=== PATIENT | male | born 1955 | race Caucasian/White ===

== ENCOUNTER 2025-06-02 10:11 | Inpatient (IN) | payer MEDICARE, SELFPAY ==
[2025-06-02] VITALS (24 sets, daily range): BP systolic 98–137; BP diastolic 54–99; PULSE 84–101; RESP 16–24; TEMP 36.6–37; O2SAT 97–100; BMI 30.4
--- NOTE | ~2025-06-02 | CT_ITS ---
CTA CHEST CT ABDOMEN PELVIS CLINICAL HISTORY: sob, rothman, swelling legs, gib . COMPARISON: None TECHNIQUE: Helical CT performed from thoracic inlet to symphysis pubis IV contrast information not in PACS Coronal, sagittal reformats. Multiplanar MIPS CT images acquired with automatic exposure control for dose reduction DLP: 1239 mGy-cm FINDINGS: CHEST- Thoracic Aorta: No dissection. No aneurysm. Pulmonary arteries: Normal caliber. No PE. Lungs/Pleura: Clear. Heart: Cardiomegaly Coronary artery calcifications. Tracheobronchial tree: Patent. Nodes: No enlarged nodes. Bones: No acute bony abnormality. Soft tissues: Unremarkable. ABDOMEN/PELVIS- Liver: Cirrhosis. Enlarged Gallbladder: Small stone. Wall thickening. Spleen: Unremarkable. Pancreas: Unremarkable. Adrenal glands: Unremarkable. Kidneys: Right kidney- No hydronephrosis. No renal stones. Small probable cysts. Left kidney- No hydronephrosis. No renal stones. Distal esophagus/stomach: High density intraluminal material at GE junction. Distal esophageal wall thickening/esophagitis. Small bowel loops: Normal caliber and wall thickness. Colon: Normal caliber and wall thickness. Normal RLQ appendix. Nodes: No enlarged nodes. Peritoneum: No ascites. No free air. Urinary bladder: Unremarkable. Prostate: Unremarkable. Bones: No acute bony abnormality. Soft tissues: Unremarkable. Abdominal aorta: Unremarkable. IVC: Unremarkable. Main portal vein, SMV: Patent. IMPRESSION: CHEST- 1. No acute cardiopulmonary findings. ABDOMEN/PELVIS- 1. Distal esophagitis. High density intraluminal material at GE junction - non cleared ingested contents versus active bleed. 2. Nonspecific gallbladder wall thickening. If indicated can consider right upper quadrant ultrasound and/or HIDA scan. 3. Additional findings as above. Reviewed, dictated and finalized at location [facility]. [facility] IMPRESSION: CHEST- 1. No acute cardiopulmonary findings. ABDOMEN/PELVIS- 1. Distal esophagitis. High density intraluminal material at GE junction - non cleared ingested contents versus active bleed. 2. Nonspecific gallbladder wall thickening. If indicated can consider right up per quadrant ultrasound and/or HIDA scan. 3. Additional findings as above.
--- NOTE | ~2025-06-02 | US_ITS ---
BILATERAL LOWER EXTREMITY VENOUS DUPLEX Clinical History: swelling ble, R>L, pain in L thigh . Comparison: None. Technique: Grayscale, color, duplex/spectral Doppler sonography bilateral lower extremities. Findings: Bilateral common femoral, femoral, popliteal, and calf veins compressible and color Doppler patent. Normal augmentation with distal compression. No internal echoes. Bilateral lower extremity interstitial edema. IMPRESSION: 1. No DVT either leg. Reviewed, dictated and finalized at location R. DERRICK OPERATOR IMPRESSION: 1. No DVT either leg.
[2025-06-02 10:36] LABS: Hematocrit 21.5 % (42.0-52.0); Immature Granulocyte Percent A 0.2 % (0-0.5); Lymphocytes Absolute Auto 1.67 K/mm3 (0.9-3.2); Mean Corpuscular HGB Conc 27.9 g/dl (32-36); Mean Corpuscular Hemoglobin 21.4 pg (26-34); Mean Corpuscular Volume 76.5 fl (80-100); Nucleated Red Blood Cells Absolute Auto 0.020 K/mm3 (0.0-0.012); Nucleated Red Blood Cells Perc 0.4 % (0.0-0.2); Platelet Count Result 246 k/mm3 (150-375); Red Blood Count 2.81 M/mm3 (4.6-6.20); White Blood Count 5.6 K/mm3 (4.5-10.0)
[2025-06-02 10:39] LABS: Hemoglobin 6.0 g/dL (14.0-18.0)
[2025-06-02 10:47] LABS: Anisocytosis 2+; Hypochromasia 2+; Stomatocytes 1+
[2025-06-02 10:48] LABS: Ovalocytes Occasional; Polychromasia 1+; Schistocytes None Seen; Target Cells Occasional
[2025-06-02 10:50] LABS: Alanine Aminotransferase 27 U/L (6-50); Albumin Level 3.5 g/dL (3.5-5.1); Alkaline Phosphatase 161 U/L (38-126); Anion Gap 6 mmol/L (4-12); Aspartate Amino Transferase 34 U/L (17-59); Bilirubin,Total 0.4 mg/dL (0.2-1.3); Blood Urea Nitrogen 11 mg/dL (9-20); Calcium 8.3 mg/dL (8.4-10.2); Carbon Dioxide 25 mmol/L (22-30); Chloride 105 mmol/L (98-107); Estimated CRCL calculation 97 ml/min; Estimated Glomerular Filt Rate > 60; Glucose 156 mg/dL (65-110); Potassium 3.3 mmol/L (3.4-5.0); Sodium 136 mmol/L (137-145); Total Protein 8.3 g/dL (6.3-8.2)
[2025-06-02 10:51] LABS: Immature Reticulocyte Fraction 29.4 % (3.0-15.9); Reticulocyte Hemoglobin Conten 15.6 pg (28.2-36.6); Reticulocytes Absolute 0.09 10^6/uL (0.02-0.10)
[2025-06-02 10:56] LABS: Iron 21 ug/dL (49-181)
[2025-06-02 10:56] LABS: INR 1.1; Prothrombin Time 14.6 Seconds (11.1-14.7)
[2025-06-02 10:57] LABS: Partial Thromboplastin Time 30.4 Seconds (22.3-36.8)
--- NOTE | 2025-06-02 11:01 | ECG_ITS ---
Test Date: 2025-06-02 11:26:18 Measurements Intervals [place] Rate: 91 P: 31 MA: 162 QRS: 17 QRSD: 98 T: 24 QT: 342 QTc: 421 Interpretive Statements SINUS RHYTHM ST-T WAVE ABNORMALITY IN ANTEROLATERAL LEADS- CONSIDER ISCHEMIA BASELINE ARTIFACT- I, II, III, AVR, AVL, AVF, V1-V6 ABNORMAL ECG No previous ECG available for comparison Electronically Signed On 06-02-2025 11:35:06 [employer] by Moreno Jones D.O.
--- NOTE | 2025-06-02 11:04 | ED.RECABL ---
HPI - Recheck/Abnormal Lab/Rx General Chief Complaint: Recheck/Abnormal Lab/Rx <Mignon Martin PA-C - Last Filed: 06/02/25 16:19> Stated Complaint: internal bleeding <Mignon Martin PA-C - Last Filed: 06/02/25 16:19> Time Seen by Provider: 06/02/25 10:16 <RUPESH Coffman Last Filed: 06/02/25 16:19> Source: patient <RUPESH Coffman Last Filed: 06/02/25 16:19> Mode of arrival: ambulatory <RUPESH Coffman Last Filed: 06/02/25 16:19> Limitations: no limitations <RUPESH Coffman Last Filed: 06/02/25 16:19> History of Present Illness HPI narrative: patient is a 70-year-old male who presents the ED with report of abnormal labs. Patient reports he has been feeling short of breath and increasingly fatigued over the past couple of weeks. He had routine blood work performed yesterday and was notified by his primary care doctor today that his hemoglobin was low. Advised to come to the ED for further evaluation. Patient states he has history of low hemoglobin in the past and has required blood transfusions in the past. Denies rectal bleeding. Does report that his stools have been dark brown/ black over the past few weeks. patient takes aspirin 81 mg daily, no other blood thinners. Denies abdominal pain, nausea, vomiting, fevers. Denies chest pain. Reports having some swelling throughout his left lower leg. States he has been treated for cellulitis in the past. States he was was to receive a stent in the leg in October, but left [facility] at that time. 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 Reports he drinks two 24oz beers per day. Used to drink heavier. Denies hx of alcohol withdrawal sx's. <RUPESH Coffman Last Filed: 06/02/25 16:19> Related Data Home Medications: Home Medications ?Medication ?Instructions ?Recorded ?Confirmed ?Last Taken ?Type blood-glucose sensor (FreeStyle 06/02/25 06/02/25 Unknown History [place] 3 Sensor device) ezetimibe 10 mg tablet 10 mg PO DAILY 06/02/25 06/02/25 06/01/25 History furosemide 40 mg tablet 40 mg PO BID 06/02/25 06/02/25 06/01/25 History gabapentin 600 mg tablet 600 mg PO TID 06/02/25 06/02/25 06/01/25 History glimepiride 2 mg tablet 2 mg PO DAILY 06/02/25 06/02/25 06/01/25 History insulin degludec 100 unit/mL (3 See Rx Instructions subcut .COMPLEX 06/02/25 06/02/25 06/01/25 History mL) subcutaneous pen (Tresiba FlexTouch U-100 insulin) insulin lispro 100 unit/mL See Rx Instructions subcut .COMPLEX 06/02/25 06/02/25 06/01/25 History subcutaneous pen metformin 1,000 mg tablet 1,000 mg PO BID 06/02/25 06/02/25 06/01/25 History potassium chloride 20 mEq 20 meq PO DAILY 06/02/25 06/02/25 06/01/25 History tablet,extended release primidone 50 mg tablet 50 mg PO BID 06/02/25 06/02/25 06/01/25 History tadalafil 20 mg tablet 20 mg PO PRN 06/02/25 06/02/25 Unknown History <Mignon Martin PA-C - Last Filed: 06/02/25 16:19> Allergies/Adverse Reactions: Allergies Allergy/AdvReac Type Severity Reaction Status Date / Time [id number] Reductase AdvReac Mild Cramping Verified 06/02/25 16:45 Inhibitor of the Muscles <RUPESH Coffman Last Filed: 06/02/25 16:19> Review of Systems Review of Systems: All systems reviewed & are unremarkable except as noted in HPI. <RUPESH Coffman Last Filed: 06/02/25 16:19> All systems reviewed & are unremarkable except as noted in HPI and below <RUPESH Coffman Last Filed: 06/02/25 16:19> Constitutional: Constitutional: Reports no additional constitutional complaints <Luigi Reyes MD - Last Filed: 06/02/25 17:22> Eyes: Eyes: Reports no additional eye complaints <Luigi Reyes MD - Last Filed: 06/02/25 17:22> ENT: Reports system reviewed and no additional complaints, except as documented <Luigi Reyes MD - Last Filed: 06/02/25 17:22> Cardiovascular: Cardiovascular: Reports no additional cardiovascular complaints <Luigi Reyes MD - Last Filed: 06/02/25 17:22> Respiratory: Respiratory: Reports no additional respiratory complaints <Luigi Reyes MD - Last Filed: 06/02/25 17:22> Musculoskeletal: Musculoskeletal: Reports as per HPI <Luigi Reyes MD - Last Filed: 06/02/25 17:22> Neurologic: Reports system reviewed and no additional complaints, except as documented <Luigi Reyes MD - Last Filed: 06/02/25 17:22> [facility] Social History Social History: Social History Alcohol intake: current Drinks per week: 14 Substance use: current Substance use type: methamphetamine Last use: 06/01/25 Lack of Transportation: No Lack of Food: Never True Current Housing: I Have Housing Concerned About Future Housing: No Difficulty Paying Gas/Electric Bills: No Difficulty Paying for Meds: No Currently Unemployed: No Education: High School Diploma/GED Difficulty w/ Childcare or Family Care: No Spiritual care concerns: No <Mignon Martin PA-C - Last Filed: 06/02/25 16:19> Exam Narrative: GENERAL: Chronically ill-appearing, obese with BMI of 30.2, non-toxic, in no acute distress. HEAD: Normocephalic, atraumatic. RESPIRATORY: Airway patent, respirations nonlabored. Clear to auscultation bilaterally, no rales, rhonchi, wheezing. CARDIOVASCULAR: Regular rate and rhythm without murmurs, rubs, or gallops. ABDOMINAL: Soft, no significant tenderness, nondistended. Normoactive BS. RECTAL: normal rectal tone. No significant hemorrhoids. Stool is dark brown /near black, guaiac positive MUSCULOSKELETAL: Moves all extremities. No gross deformities. Diffuse swelling throughout LLE with some redness throughout lower leg. No significant warmth. Pedal pulses are intact and easily palpable. No significant focal tenderness throughout BLE SKIN: Warm, dry, normal color. NEURO: A&O X3. Speech clear. Cranial nerves II-XII grossly intact. Steady gait. No ataxic movements. PSYCHIATRIC: Appropriate mood and affect. Normal interaction. <Mignon Martin PA-C - Last Filed: 06/02/25 16:19> Course RAG SHREDDER/PA Physician Supervision i did reviewed the chart, examined patient and agree with management <Luigi Reyes MD - Last Filed: 06/02/25 17:22> Vital Signs Vital signs: Vital Signs Temperature 36.6 C 06/02/25 10:20 Pulse Rate 101 H 06/02/25 10:20 Respiratory Rate 23 H 06/02/25 10:20 Blood Pressure 130/69 06/02/25 10:20 Pulse Oximetry 100 06/02/25 10:20 Oxygen Delivery Room Air 06/02/25 10:20 Temperature 36.8 C 06/02/25 16:46 Pulse Rate 86 06/02/25 16:46 Respiratory Rate 18 06/02/25 16:46 Blood Pressure 114/60 06/02/25 16:46 Pulse Oximetry 100 06/02/25 16:46 Oxygen Delivery Room Air 06/02/25 10:20 <Mignon Martin PA-C - Last Filed: 06/02/25 16:19> Vital Signs Temperature 36.6 C 06/02/25 10:20 Pulse Rate 101 H 06/02/25 10:20 Respiratory Rate 23 H 06/02/25 10:20 Blood Pressure 130/69 06/02/25 10:20 Pulse Oximetry 100 06/02/25 10:20 Oxygen Delivery Room Air 06/02/25 10:20 Temperature 36.8 C 06/02/25 16:46 Pulse Rate 86 06/02/25 16:46 Respiratory Rate 18 06/02/25 16:46 Blood Pressure 114/60 06/02/25 16:46 Pulse Oximetry 100 06/02/25 16:46 Oxygen Delivery Room Air 06/02/25 10:20 <Lugii Reyes MD - Last Filed: 06/02/25 17:22> MDM MDM Narrative Medical decision making narrative: Patient presented to ED with report of abnormal labs. States he has been feeling it short of breath and fatigued over the past few weeks, had labs drawn yesterday which showed low hemoglobin. Sent here for further evaluation. Patient mildly tachycardic and tachypneic upon arrival, but in no acute distress. Rectal exam was performed and patient is guaiac positive. States his stools have been darker in color over the past few days. Denies BRBPR. On aspirin, no other blood thinners. Denies abdominal pain, but does have history of moderate alcohol use. Protonix initiated. Hemoglobin today 6.0. Hematocrit 21.5. Microcytic with MCV 76. Platelets within normal range. 2U packed red blood cell ordered. Anemia labs added on. CMP with potassium 3.3. Replaced orally. Kidney function stable. Lactic acid 2.6. EKG with lots of artifacts, sinus rhythm, no significant concerning ST changes. Troponin undetectable. BNP within normal range. Venous Doppler ultrasound of bilateral lower extremities negative for DVT. will start cefazolin for cellulitis of left lower extremity. no purulence/abscess. CTA of chest with abdomen / pelvis obtained: 1. Distal esophagitis. High density intraluminal material at GE junction - non cleared ingested contents versus active bleed. 2. Nonspecific gallbladder wall thickening. If indicated can consider right upper quadrant ultrasound and/or HIDA scan. Discussed case with Dr. Little, GI, will consult. Discussed case with Maritza, [facility] hospitalist, accepted patient for admission. Will keep patient NPO for now. Patient is in agreement with plan and need for admission. He is remaining hemodynamically stable at this time. Blood ongoing. <Mignon Martin PA-C - Last Filed: 06/02/25 16:19> Differential Diagnosis Differential Diagnosis: UGIB, LGIB, hemorrhoids, iron deficiency anemia, anemia of chronic disease, acs, pe <Mignon Martin PA-C - Last Filed: 06/02/25 16:19> Lab Data [facility] Lab Attestation statement: I personally reviewed the patient's lab results. <Mignon Martin PA-C - Last Filed: 06/02/25 16:19> Result diagrams: 06/02/25 10:30 06/02/25 10:30 <Mignon Martin PA-C - Last Filed: 06/02/25 16:19> Labs: Lab Results 06/02/25 06/02/25 06/02/25 Range/Units 10:27 10:29 10:30 WBC 5.6 (4.5-10.0) K/mm3 RBC 2.81 L (4.6-6.20) M/mm3 Hgb 6.0 L* (14.0-18.0) g/dL Hct 21.5 L (42.0-52.0) % MCV 76.5 L (80-100) fl MCH 21.4 L (26-34) pg MCHC 27.9 L (32-36) g/dl RDW 20.2 H (11.5-14.5) % Plt Count 246 (150-375) k/mm3 MPV 9.4 (7.4-10.4) fl Immature Gran % (Auto) 0.2 (0-0.5) % Neut % (Auto) 55.8 (45.5-73.1) % Lymph % (Auto) 29.8 (18.3-44.2) % [place] % (Auto) 12.1 H (2.6-8.5) % Eos % (Auto) 0.9 (0-4.4) % Baso % (Auto) 1.2 (0.2-1.2) % Lymph # (Auto) 1.67 (0.9-3.2) K/mm3 [place] # (Auto) 0.7 H (0.1-0.6) K/mm3 Eos # (Auto) 0.1 (0-0.3) K/mm3 Baso # (Auto) 0.1 (0.0-0.1) K/mm3 Abs Immat Gran (auto) 0.01 (0.00-0.031) K/mm3 Absolute Neuts (auto) 3.1 (1.3-6.7) K/mm3 Absolute Nucleated RBC 0.020 H (0.0-0.012) K/mm3 Band Neutrophils % Not Reportable Nucleated RBC % 0.4 H (0.0-0.2) % Platelet Estimate Adequate (Adequate) Polychromasia 1+ Hypochromasia 2+ Anisocytosis 2+ Target Cells Occasional Ovalocytes Occasional Stomatocytes 1+ Schistocytes None seen Absolute Retic 0.09 (0.02-0.10) 10^6/uL Percent Retic 3.23 (0.7-4.3) % Immature Retic Fraction 29.4 H (3.0-15.9) % Retic Hgb Content 15.6 L (28.2-36.6) pg PT 14.6 (11.1-14.7) Seconds INR 1.1 APTT 30.4 (22.3-36.8) Seconds Sodium 136 L (137-145) mmol/L Potassium 3.3 L (3.4-5.0) mmol/L Chloride 105 (98-107) mmol/L Carbon Dioxide 25 (22-30) mmol/L Anion Gap 6 (4-12) mmol/L BUN 11 (9-20) mg/dL Creatinine 0.69 L (0.7-1.3) mg/dL Estim Creat Clear Calc 97 ml/min Estimated GFR > 60 (59 - ) Glucose 156 H (65-110) mg/dL POC Capillary Glucose 165 H (65-105) mg/dl Lactic Acid 2.6 H (0.7-2.0) mmol/L Calcium 8.3 L (8.4-10.2) mg/dL Magnesium 1.6 (1.6-2.3) mg/dL Iron 21 L (49-181) ug/dL TIBC 459 (265-497) ug/dL % Saturation 5 L (20-50) % Transferrin 413 H (206-381) mg/dL Ferritin 19.00 (11.1-264) ng/mL Total Bilirubin 0.4 (0.2-1.3) mg/dL AST 34 (17-59) U/L ALT 27 (6-50) U/L Alkaline Phosphatase 161 H (38-126) U/L Troponin I < 0.012 (0.000-0.034) ng/mL NT-Pro-B Natriuret Pep 71 (19.9-100) pg/mL Total Protein 8.3 H (6.3-8.2) g/dL Albumin 3.5 (3.5-5.1) g/dL Vitamin B12 404.0 (239-931) pg/mL Folate 19.6 (2.76->20) ng/mL TSH (Reflex) 2.780 (0.465-4.68) uIU/mL Urine Color (Yellow) Urine Appearance (Clear) Urine pH (5.0-9.0) Ur Specific [place] (1.001-1.035) Urine Protein (Negative) mg/dL Urine Glucose (UA) (Negative) mg/dL Urine Ketones (Negative) mg/dL Ur Blood (Man) (Negative) Urine Nitrate (Negative) Urine Bilirubin (Negative) Urine Urobilinogen (<2.0) mg/dL Leukocyte Esterase Rfl (Negative) ERIK/UL Urine RBC (0-2) /hpf Urine WBC (0-3) /hpf Ur Squamous Epith Cells (Few) /hpf Urine Bacteria /hpf Urine Casts Urine Opiates Screen (Negative) Urine Methadone Screen (Negative) Ur Barbiturates Screen (Negative) Ur Phencyclidine Scrn (Negative) Ur Amphetamine Screen (Negative) U Benzodiazepines Scrn (Negative) Urine Cocaine Screen (Negative) U Cannabinoids Screen (Negative) Ethyl Alcohol < 10 (<10) mg/dL Blood Type O Positive Antibody Screen Negative Crossmatch See Detail 06/02/25 06/02/25 Range/Units 12:00 13:10 WBC (4.5-10.0) K/mm3 RBC (4.6-6.20) M/mm3 Hgb (14.0-18.0) g/dL Hct (42.0-52.0) % MCV (80-100) fl MCH (26-34) pg MCHC (32-36) g/dl RDW (11.5-14.5) % Plt Count (150-375) k/mm3 MPV (7.4-10.4) fl Immature Gran % (Auto) (0-0.5) % Neut % (Auto) (45.5-73.1) % Lymph % (Auto) (18.3-44.2) % [place] % (Auto) (2.6-8.5) % Eos % (Auto) (0-4.4) % Baso % (Auto) (0.2-1.2) % Lymph # (Auto) (0.9-3.2) K/mm3 [place] # (Auto) (0.1-0.6) K/mm3 Eos # (Auto) (0-0.3) K/mm3 Baso # (Auto) (0.0-0.1) K/mm3 Abs Immat Gran (auto) (0.00-0.031) K/mm3 Absolute Neuts (auto) (1.3-6.7) K/mm3 Absolute Nucleated RBC (0.0-0.012) K/mm3 Band Neutrophils % Nucleated RBC % (0.0-0.2) % Platelet Estimate (Adequate) Polychromasia Hypochromasia Anisocytosis Target Cells Ovalocytes Stomatocytes Schistocytes Absolute Retic (0.02-0.10) 10^6/uL Percent Retic (0.7-4.3) % Immature Retic Fraction (3.0-15.9) % Retic Hgb Content (28.2-36.6) pg PT (11.1-14.7) Seconds INR APTT (22.3-36.8) Seconds Sodium (137-145) mmol/L Potassium (3.4-5.0) mmol/L Chloride (98-107) mmol/L Carbon Dioxide (22-30) mmol/L Anion Gap (4-12) mmol/L BUN (9-20) mg/dL Creatinine (0.7-1.3) mg/dL Estim Creat Clear Calc ml/min Estimated GFR (59 - ) Glucose (65-110) mg/dL POC Capillary Glucose (65-105) mg/dl Lactic Acid 2.0 (0.7-2.0) mmol/L Calcium (8.4-10.2) mg/dL Magnesium (1.6-2.3) mg/dL Iron (49-181) ug/dL TIBC (265-497) ug/dL % Saturation (20-50) % Transferrin (206-381) mg/dL Ferritin (11.1-264) ng/mL Total Bilirubin (0.2-1.3) mg/dL AST (17-59) U/L ALT (6-50) U/L Alkaline Phosphatase (38-126) U/L Troponin I (0.000-0.034) ng/mL NT-Pro-B Natriuret Pep (19.9-100) pg/mL Total Protein (6.3-8.2) g/dL Albumin (3.5-5.1) g/dL Vitamin B12 (239-931) pg/mL Folate (2.76->20) ng/mL TSH (Reflex) (0.465-4.68) uIU/mL Urine Color Yellow (Yellow) Urine Appearance Clear (Clear) Urine pH 7.0 (5.0-9.0) Ur Specific [place] 1.017 (1.001-1.035) Urine Protein Negative (Negative) mg/dL Urine Glucose (UA) Negative (Negative) mg/dL Urine Ketones Negative (Negative) mg/dL Ur Blood (Man) Negative (Negative) Urine Nitrate Negative (Negative) Urine Bilirubin Negative (Negative) Urine Urobilinogen 2.0 H (<2.0) mg/dL Leukocyte Esterase Rfl Trace H (Negative) ERIK/UL Urine RBC 0-2 (0-2) /hpf Urine WBC 0-5 (0-3) /hpf Ur Squamous Epith Cells None seen (Few) /hpf Urine Bacteria None seen /hpf Urine Casts 0-2 Urine Opiates Screen Negative (Negative) Urine Methadone Screen Negative (Negative) Ur Barbiturates Screen Positive A (Negative) Ur Phencyclidine Scrn Negative (Negative) Ur Amphetamine Screen Positive A (Negative) U Benzodiazepines Scrn Negative (Negative) Urine Cocaine Screen Negative (Negative) U Cannabinoids Screen Negative (Negative) Ethyl Alcohol (<10) mg/dL Blood Type Antibody Screen Crossmatch <Mignon Martin PA-C - Last Filed: 06/02/25 16:19> Lab Results 06/02/25 06/02/25 06/02/25 Range/Units 10:27 10:29 10:30 WBC 5.6 (4.5-10.0) K/mm3 RBC 2.81 L (4.6-6.20) M/mm3 Hgb 6.0 L* (14.0-18.0) g/dL Hct 21.5 L (42.0-52.0) % MCV 76.5 L (80-100) fl MCH 21.4 L (26-34) pg MCHC 27.9 L (32-36) g/dl RDW 20.2 H (11.5-14.5) % Plt Count 246 (150-375) k/mm3 MPV 9.4 (7.4-10.4) fl Immature Gran % (Auto) 0.2 (0-0.5) % Neut % (Auto) 55.8 (45.5-73.1) % Lymph % (Auto) 29.8 (18.3-44.2) % [place] % (Auto) 12.1 H (2.6-8.5) % Eos % (Auto) 0.9 (0-4.4) % Baso % (Auto) 1.2 (0.2-1.2) % Lymph # (Auto) 1.67 (0.9-3.2) K/mm3 [place] # (Auto) 0.7 H (0.1-0.6) K/mm3 Eos # (Auto) 0.1 (0-0.3) K/mm3 Baso # (Auto) 0.1 (0.0-0.1) K/mm3 Abs Immat Gran (auto) 0.01 (0.00-0.031) K/mm3 Absolute Neuts (auto) 3.1 (1.3-6.7) K/mm3 Absolute Nucleated RBC 0.020 H (0.0-0.012) K/mm3 Band Neutrophils % Not Reportable Nucleated RBC % 0.4 H (0.0-0.2) % Platelet Estimate Adequate (Adequate) Polychromasia 1+ Hypochromasia 2+ Anisocytosis 2+ Target Cells Occasional Ovalocytes Occasional Stomatocytes 1+ Schistocytes None seen Absolute Retic 0.09 (0.02-0.10) 10^6/uL Percent Retic 3.23 (0.7-4.3) % Immature Retic Fraction 29.4 H (3.0-15.9) % Retic Hgb Content 15.6 L (28.2-36.6) pg PT 14.6 (11.1-14.7) Seconds INR 1.1 APTT 30.4 (22.3-36.8) Seconds Sodium 136 L (137-145) mmol/L Potassium 3.3 L (3.4-5.0) mmol/L Chloride 105 (98-107) mmol/L Carbon Dioxide 25 (22-30) mmol/L Anion Gap 6 (4-12) mmol/L BUN 11 (9-20) mg/dL Creatinine 0.69 L (0.7-1.3) mg/dL Estim Creat Clear Calc 97 ml/min Estimated GFR > 60 (59 - ) Glucose 156 H (65-110) mg/dL POC Capillary Glucose 165 H (65-105) mg/dl Lactic Acid 2.6 H (0.7-2.0) mmol/L Calcium 8.3 L (8.4-10.2) mg/dL Magnesium 1.6 (1.6-2.3) mg/dL Iron 21 L (49-181) ug/dL TIBC 459 (265-497) ug/dL % Saturation 5 L (20-50) % Transferrin 413 H (206-381) mg/dL Ferritin 19.00 (11.1-264) ng/mL Total Bilirubin 0.4 (0.2-1.3) mg/dL AST 34 (17-59) U/L ALT 27 (6-50) U/L Alkaline Phosphatase 161 H (38-126) U/L Troponin I < 0.012 (0.000-0.034) ng/mL NT-Pro-B Natriuret Pep 71 (19.9-100) pg/mL Total Protein 8.3 H (6.3-8.2) g/dL Albumin 3.5 (3.5-5.1) g/dL Vitamin B12 404.0 (239-931) pg/mL Folate 19.6 (2.76->20) ng/mL TSH (Reflex) 2.780 (0.465-4.68) uIU/mL Urine Color (Yellow) Urine Appearance (Clear) Urine pH (5.0-9.0) Ur Specific [place] (1.001-1.035) Urine Protein (Negative) mg/dL Urine Glucose (UA) (Negative) mg/dL Urine Ketones (Negative) mg/dL Ur Blood (Man) (Negative) Urine Nitrate (Negative) Urine Bilirubin (Negative) Urine Urobilinogen (<2.0) mg/dL Leukocyte Esterase Rfl (Negative) ERIK/UL Urine RBC (0-2) /hpf Urine WBC (0-3) /hpf Ur Squamous Epith Cells (Few) /hpf Urine Bacteria /hpf Urine Casts Urine Opiates Screen (Negative) Urine Methadone Screen (Negative) Ur Barbiturates Screen (Negative) Ur Phencyclidine Scrn (Negative) Ur Amphetamine Screen (Negative) U Benzodiazepines Scrn (Negative) Urine Cocaine Screen (Negative) U Cannabinoids Screen (Negative) Ethyl Alcohol < 10 (<10) mg/dL Blood Type O Positive Antibody Screen Negative Crossmatch See Detail 06/02/25 06/02/25 Range/Units 12:00 13:10 WBC (4.5-10.0) K/mm3 RBC (4.6-6.20) M/mm3 Hgb (14.0-18.0) g/dL Hct (42.0-52.0) % MCV (80-100) fl MCH (26-34) pg MCHC (32-36) g/dl RDW (11.5-14.5) % Plt Count (150-375) k/mm3 MPV (7.4-10.4) fl Immature Gran % (Auto) (0-0.5) % Neut % (Auto) (45.5-73.1) % Lymph % (Auto) (18.3-44.2) % [place] % (Auto) (2.6-8.5) % Eos % (Auto) (0-4.4) % Baso % (Auto) (0.2-1.2) % Lymph # (Auto) (0.9-3.2) K/mm3 [place] # (Auto) (0.1-0.6) K/mm3 Eos # (Auto) (0-0.3) K/mm3 Baso # (Auto) (0.0-0.1) K/mm3 Abs Immat Gran (auto) (0.00-0.031) K/mm3 Absolute Neuts (auto) (1.3-6.7) K/mm3 Absolute Nucleated RBC (0.0-0.012) K/mm3 Band Neutrophils % Nucleated RBC % (0.0-0.2) % Platelet Estimate (Adequate) Polychromasia Hypochromasia Anisocytosis Target Cells Ovalocytes Stomatocytes Schistocytes Absolute Retic (0.02-0.10) 10^6/uL Percent Retic (0.7-4.3) % Immature Retic Fraction (3.0-15.9) % Retic Hgb Content (28.2-36.6) pg PT (11.1-14.7) Seconds INR APTT (22.3-36.8) Seconds Sodium (137-145) mmol/L Potassium (3.4-5.0) mmol/L Chloride (98-107) mmol/L Carbon Dioxide (22-30) mmol/L Anion Gap (4-12) mmol/L BUN (9-20) mg/dL Creatinine (0.7-1.3) mg/dL Estim Creat Clear Calc ml/min Estimated GFR (59 - ) Glucose (65-110) mg/dL POC Capillary Glucose (65-105) mg/dl Lactic Acid 2.0 (0.7-2.0) mmol/L Calcium (8.4-10.2) mg/dL Magnesium (1.6-2.3) mg/dL Iron (49-181) ug/dL TIBC (265-497) ug/dL % Saturation (20-50) % Transferrin (206-381) mg/dL Ferritin (11.1-264) ng/mL Total Bilirubin (0.2-1.3) mg/dL AST (17-59) U/L ALT (6-50) U/L Alkaline Phosphatase (38-126) U/L Troponin I (0.000-0.034) ng/mL NT-Pro-B Natriuret Pep (19.9-100) pg/mL Total Protein (6.3-8.2) g/dL Albumin (3.5-5.1) g/dL Vitamin B12 (239-931) pg/mL Folate (2.76->20) ng/mL TSH (Reflex) (0.465-4.68) uIU/mL Urine Color Yellow (Yellow) Urine Appearance Clear (Clear) Urine pH 7.0 (5.0-9.0) Ur Specific [place] 1.017 (1.001-1.035) Urine Protein Negative (Negative) mg/dL Urine Glucose (UA) Negative (Negative) mg/dL Urine Ketones Negative (Negative) mg/dL Ur Blood (Man) Negative (Negative) Urine Nitrate Negative (Negative) Urine Bilirubin Negative (Negative) Urine Urobilinogen 2.0 H (<2.0) mg/dL Leukocyte Esterase Rfl Trace H (Negative) ERIK/UL Urine RBC 0-2 (0-2) /hpf Urine WBC 0-5 (0-3) /hpf Ur Squamous Epith Cells None seen (Few) /hpf Urine Bacteria None seen /hpf Urine Casts 0-2 Urine Opiates Screen Negative (Negative) Urine Methadone Screen Negative (Negative) Ur Barbiturates Screen Positive A (Negative) Ur Phencyclidine Scrn Negative (Negative) Ur Amphetamine Screen Positive A (Negative) U Benzodiazepines Scrn Negative (Negative) Urine Cocaine Screen Negative (Negative) U Cannabinoids Screen Negative (Negative) Ethyl Alcohol (<10) mg/dL Blood Type Antibody Screen Crossmatch <Luigi Reyes MD - Last Filed: 06/02/25 17:22> Imaging Data Attestation: I personally reviewed and interpreted this imaging study as follows: <Mignon Martin PA-C - Last Filed: 06/02/25 16:19> Radiologist's impression: ITS Impressions Venous Doppler Study 06/02/25 11:57 IMPRESSION: 1. No DVT either leg. Chest/Abdomen/Pelvis CTA 06/02/25 12:37 IMPRESSION: CHEST- 1. No acute cardiopulmonary findings. ABDOMEN/PELVIS- 1. Distal esophagitis. High density intraluminal material at GE junction - non cleared ingested contents versus active bleed. 2. Nonspecific gallbladder wall thickening. If indicated can consider right upper quadrant ultrasound and/or HIDA scan. 3. Additional findings as above. <Mignon Martin PA-C - Last Filed: 06/02/25 16:19> ITS Impressions Venous Doppler Study 06/02/25 11:57 IMPRESSION: 1. No DVT either leg. Chest/Abdomen/Pelvis CTA 06/02/25 12:37 IMPRESSION: CHEST- 1. No acute cardiopulmonary findings. ABDOMEN/PELVIS- 1. Distal esophagitis. High density intraluminal material at GE junction - non cleared ingested contents versus active bleed. 2. Nonspecific gallbladder wall thickening. If indicated can consider right upper quadrant ultrasound and/or HIDA scan. 3. Additional findings as above. <Luigi Reyes MD - Last Filed: 06/02/25 17:22> ECG Data EKG #1: Attestation: I personally reviewed and interpreted this ECG as follows: <Mignon Martin PA-C - Last Filed: 06/02/25 16:19> ECG completion date: 06/02/25 <Mignon Martin PA-C - Last Filed: 06/02/25 16:19> ECG completion time: 11:26 <Mignon Martin PA-C - Last Filed: 06/02/25 16:19> normal rate (91), sinus rhythm and non-specific ST changes ( lots of baseline artifact) <Mignon Martin PA-C - Last Filed: 06/02/25 16:19> Discharge Plan Discharge Clinical Impression: UGIB (upper gastrointestinal bleed), Cellulitis of left lower extremity Anemia Qualifiers: Anemia type: unspecified type Qualified Code(s): D64.9 - Anemia, unspecified <Mignon Martin PA-C - Last Filed: 06/02/25 16:19> Patient Disposition: Still a Patient <Mignon Martin PA-C - Last Filed: 06/02/25 16:19> Condition: Stable <RUPESH Coffman Last Filed: 06/02/25 16:19>
[2025-06-02 11:05] LABS: Percent Iron Saturation 5 % (20-50)
--- OUTSIDE RECORDS SUMMARY | 2025-06-02 11:11 | XMS_ITS | Clinical Summary ---
Author Organization [facility] Address [address] [facility] [place] [address] Care Team Providers Care Marketing Planner Name Role Phone Toribio Laguerre MD Unavailable [phone] Gordon Polo MD Unavailable [phone] Stu Ho MD Primary Care Provider [phone] Source Comments [facility],non-owned Affiliates and Associated Physician Practices is amultiple site organization consisting of ambulatory clinics and hospital sitesin [place], [place], [place] and [place]. This disclosure is being madepursuant to the Care Everywhere program and may not contain all information available regarding this patient. Last updated 18.[facility] Allergies No known active allergies Medications * Be aware that medications may not be up to date on this document. Alwaysverify current medications with the patient. METFORMIN HCL PO Take 500 mg by mouth 2 times daily. Active atenolol (TENORMIN) 50 MG tablet 2 times daily. Activ e triamterene-hyd rochlorothiazid e (MAXZIDE) 75-50 MG tablet once daily. Ac tive hydrocodone-saumya taminophen (NORCO) 5-325 MG tablet Take 1-2 Tabs by mouth every 4 hours as needed for Pain (pain). Called to pharmacy [facility] per Dr Whittaker 40 Tab 1 3 Active methocarbamol (ROBAXIN) 750 MG tablet Take 1 Tab by mouth every 6 hours. 40 Tab 1 3 Active diclofenac sodium (VOLTAREN) 75 MG tablet TBEC Alternate 3 one day 2 next 150 Tab 5 3 Active traMADol (ULTRAM) 50 MG tablet Take 1 Tab by mouth every 6 hours as needed for Pain. 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 Gender Identity Not on file Sexual Orientation Not on file Occupation Industry Job Start Date Job End Date [employer] Not on file Not on file Not on file Last Filed Vital Signs Vital Sign Reading Time Taken Comments Blood Pressure 115/73 08/07/2012 2:26 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 Pulse 80 08/07/2012 2: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 Temperature 36.9 C (98.4 F) 08/07/2012 2: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 Respiratory Rate 16 08/07/2012 2: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 Oxygen Saturation 97% 08/07/2012 2: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 Inhaled Oxygen Concentration - - Weight 108.9 kg (240 lb) 08/07/2012 2: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 Height 172.7 cm (5' 8) 08/07/2012 2: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 Body Mass Index 36.49 08/07/2012 2: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 Plan of Treatment Health Maintenance Due Date Last Done Comments COLOGUARD (AGES 45-75) - COL ON CA SCREENING 1953 COLON MONITORING 1953 COLONOSCOPY - COLON CA SCREENING 1953 CT COLONOGRAPHY - COLON CA SCREENING 1953 Colorectal Cancer Screening 1953 FIT - COLON CA SCREENING 1953 FLEX SIG - COLON CA SCREENING 1953 LIPID TESTING 1953 HEPATITIS C SCREENING 02/17/1971 DTAP/TDAP/TD VACCINES (1 - Tdap) 02/22/1972 PNEUMOCOCCAL VACCINE 50+ (1 of 1 - PCV) 2003 ZOSTER VACCINE (1 of 2) 2003 DEPRESSION SCREENING 06/29/2024 COVID-19 VACCINE ( - 2024-2 6 season) 2025 INFLUENZA VACCINE (#1) 2025 Respiratory Syncytial Virus (RSV) Vaccine Pt: or over 60 yrs (1 - 1-dose 75+ series) 02/22/2028 HEPATITIS B VACCINE Aged Out No longe r eligible based on patient's age to complete this topic HIB VACCINE Aged Out No longer eligi ble based on patient's age to complete this topic HPV VACCINE Aged Out No longer eligi ble based on patient's age to complete this topic MENINGOCOCCAL (Group B) VACC INE SHARED DECISION-MAKING Aged Out No longer eligibl e based on patient's age to complete this topic MENINGOCOCCAL GROUPS A/C/Y/W VACCINE Aged Out No longer eligible b ased on patient's age to complete this topic Medical Devices Implanted Type Area Audio Visual Project Manager Device Identifier Shelf Expiration Date Model / Serial / Lot Kt Hmstat Plus Gel Foam Implanted:Qty: 1 on 08/05/2012 by Martin Whittaker MD at [facility] Spine Lumbar [employer] 04/28/2014 [id number] / / [id number] Kt Infs Bone Grft Med Implanted:Qty: 1 on 08/05/2012 by Martin Whittaker MD at [facility] Spine Lumbar [employer] 11/27/2014 [id number] / / [id number] Chip [facility] Bone 15cc - [id number] Implanted:Qty: 1 on 08/05/2012 by Martin Whittaker MD at [facility] Spine Lumbar [employer] 10/29/2016 [id number] / [id number] / [id number] Plate Spire 45mm Implanted:Qty: 1 on 08/05/2012 by Martin Whittaker MD at [facility] Spine Lumbar Med[employer] [id number] / / St Scrw Brk Off M4 Implanted:Qty: 1 on 08/05/2012 by Martin Whittaker MD at [facility] Spine Lumbar [employer] [id number] / / Insurance [facility] Advance Directives * FULL RESUSCITATION (Latest Code Status on File) Date Activated Date Inactivated Comments 08/05/2012 3:12 PM 08/05/2012 7:35 PM Care Teams Marketing Planner Relationship Specialty Start Date End Date Stu Ho MD [address] [place] [address] [address] [place] [address] PCP - General Internal Medicine 08/03/12 Toribio Laguerre MD Referring Physician Internal Medicine 05/12/12 Gordon Polo MD [facility] [address] [address] [address] [place] [address] Internal Medicine 05/12/12
[2025-06-02] MEDS: POTASSIUM CHLORIDE 20 MEQ ER TABLET PO (11:18)
[2025-06-02] MEDS: PANTOPRAZOLE SODIUM IV 40 MG VIAL IV PUSH ×2 (11:19→21:12)
[2025-06-02 11:29] LABS: Thyroid Stimulating Hormone Reflex 2.780 uIU/mL (0.465-4.68)
[2025-06-02 11:33] LABS: Ferritin 19.00 ng/mL (11.1-264); Magnesium 1.6 mg/dL (1.6-2.3)
[2025-06-02 11:34] LABS: Transferrin 413 mg/dL (206-381)
[2025-06-02 11:47] LABS: NT Pro B Type Natriuretic Pept 71 pg/mL (19.9-100); Troponin I < 0.012 ng/mL (0.000-0.034)
[2025-06-02] MEDS: MAGNESIUM SULF 2 GM/WATER 50ML 2 GM/50 ML BAG IVPB (11:51)
[2025-06-02 12:06] LABS: Vitamin B12 404.0 pg/mL (239-931)
[2025-06-02 12:13] LABS: Add Urine Microscopic? YES; Appearance Urine Clear (Clear); Glucose Urine UA Negative (Negative); Leukocyte Esterase Ur Trace LEU/UL (Negative); Nitrate Urine Negative (Negative); Non Pathogenic Casts 0-2; Specific Grav Ur 1.017 (1.001-1.035)
[2025-06-02 12:40] LABS: Cannabinoid Screen Urine Negative (Negative)
[2025-06-02] MEDS: TUBING, BLOOD PLUM PUMP TUBING 1 EACH XX (12:40)
[2025-06-02] MEDS: SODIUM CHLORIDE 0.9% IV 250 ML 30 ML IV CONT (12:40)
[2025-06-02] MEDS: ceFAZolin 1 GM in SODIUM CHLORIDE 0.9% IV 50 ML 100 ML IVPB ×2 (12:57→21:11)
--- NOTE | 2025-06-02 12:57 | PC.NURSE ---
per EDP no blood cultures are needed at this time
--- NOTE | 2025-06-02 15:35 | WPCEDHO ---
ED Hand Off Checklist All vitals saved: yes IV Site documented: yes All med administrations documented: yes Triage Note Triage Note pt ambulatory to ED for c/o low 06/02/25 10:20 hemoglobin. pt says he got his blood drawn yesterday at his PCP office and got a call today that his hemoglobin was 6.2. pt says I also do some street drugs pt says he uses meth, last use was last night I smoke it sometimes pt denies other drug use. pt says he drinks 2 24oz beers/day. pt also c/o intermittent SOB. pt says he has a HX of internal bleeding in 2020. pt L leg is also swollen and red, he has cellultits and supposed to get surgery at [facility] but left. pt is A&OX4 Allergies Sxdhhrf-ROF-LhH Reductase Inhibitor Adverse Reaction (Mild, Verified 06/02/25 10:32) Cramping of the Muscles Active Medications including assessments/comments Sodium Chloride (Normal Saline Iv) 250 mls @ 30 mls/hr IV CONT .Q8H20M STA Stop: 06/02/25 19:20 Last Admin: 06/02/25 12:40 Dose: 30 mls/hr Documented By: JEREMY Infusion/Titration Document 06/02/25 12:40 JEREMY (Rec: 06/02/25 12:40 JEREMY [id number]) Intake IV Site Peripheral Access Right Forearm Container Volume 250 Waste Amount 0 Dosing Infusion Rate 30 Cumulative Dose Not Applicable Increase/Decrease Started Elapsed Time Elapsed Time ( 0m minutes) Administered/Completed Medications Discontinued Medications Magnesium Sulfate (Magnesium Sulf 2 Gm/Water 50ml) 2 gm in 50 mls @ 50 mls/hr IVPB ONCE ONE Stop: 06/02/25 12:34 Last Infusion: 06/02/25 12:51 Dose: Infused Documented By: Admin: 06/02/25 11:51 Dose: 50 mls/hr Documented By: JEREMY Co-signed By: JACKELYN Cefazolin Sodium 1 gm/ Sodium (Chloride) 50 mls @ 100 mls/hr IVPB ONCE STA Stop: 06/02/25 12:52 Last Infusion: 06/02/25 13:27 Dose: Infused Documented By: Admin: 06/02/25 12:57 Dose: 100 mls/hr Documented By: JEREMY IV Miscellaneous Supplies (Tubing, Blood [place] Pump Tubing) Confirm Administered Dose 1 each XX .STK-MED ONE Stop: 06/02/25 11:13 Last Admin: 06/02/25 12:40 Dose: 1 each Documented By: JEREMY Pantoprazole Sodium (Pantoprazole Sodium Iv 40 Mg Vial) 40 mg IV PUSH ONCE STA Stop: 06/02/25 11:02 Last Admin: 06/02/25 11:19 Dose: 40 mg Documented By: JEREMY Potassium Chloride (Potassium Chloride 20 Meq Er Tablet) 20 meq PO ONCE STA Stop: 06/02/25 11:05 Last Admin: 06/02/25 11:18 Dose: 20 meq Documented By: JEREMY Notes 06/02/25 12:57 Nurse Note by Negin Young per EDP no blood cultures are needed at this time Initialized on 06/02/25 12:57 - END OF NOTE Interventions/Assessments General Assessment Start: 06/02/25 10:12 Freq: Status: Active Protocol: Document 06/02/25 10:31 KNW (Rec: 06/02/25 10:32 KNMaryse [id number]) GA Neurological Assessment Level of Alert,Awake Consciousness Arousable to Verbal Orientation Oriented to Person,Oriented to Place,Oriented to Time Behavior Appropriate,Cooperative Patient Able to Comprehend Comprehension Memory Description Intact Ability to Maintain Normal Balance Facial Symmetry Symmetrical Speech Pattern Clear IV / Saline Lock, Insert Start: 06/02/25 10:17 Freq: STAT Status: Active Protocol: Document 06/02/25 11:50 KNW (Rec: 06/02/25 11:50 JEREMY [id number]) IV Assessment Peripheral Access Right Forearm IV Catheter Access Initiated IV Insertion Date 06/02/25 IV Insertion Time 11:50 Catheter Gauge 16 IV Insertion 1 Attempts Ultrasound Used for No Placement IV Site Assessment WNL IV Care and WNL Maintenance Last Vital Signs Temperature 98.2 F 06/02/25 14:52 Pulse Rate 91 06/02/25 15:34 Respiratory Rate 18 06/02/25 15:34 Pulse Oximetry 98 06/02/25 15:34 Blood Pressure 109/60 06/02/25 15:34 Blood Pressure Mean 76 06/02/25 15:34 Blood Pressure Position Sitting 06/02/25 14:52 Oxygen Delivery Room Air 06/02/25 10:20 Weight 95.4 kg 06/02/25 10:20 Last Result - Abnormals Only RBC 2.81 M/mm3 (4.6-6.20) L 06/02/25 10:30 Hgb 6.0 g/dL (14.0-18.0) L* 06/02/25 10:30 Hct 21.5 % (42.0-52.0) L 06/02/25 10:30 MCV 76.5 fl (80-100) L 06/02/25 10:30 MCH 21.4 pg (26-34) L 06/02/25 10:30 MCHC 27.9 g/dl (32-36) L 06/02/25 10:30 RDW 20.2 % (11.5-14.5) H 06/02/25 10:30 Todd % (Auto) 12.1 % (2.6-8.5) H 06/02/25 10:30 Todd # (Auto) 0.7 K/mm3 (0.1-0.6) H 06/02/25 10:30 Absolute Nucleated RBC 0.020 K/mm3 (0.0-0.012) H 06/02/25 10:30 Nucleated RBC % 0.4 % (0.0-0.2) H 06/02/25 10:30 Immature Retic Fraction 29.4 % (3.0-15.9) H 06/02/25 10:29 Retic Hgb Content 15.6 pg (28.2-36.6) L 06/02/25 10:29 Sodium 136 mmol/L (137-145) L 06/02/25 10:30 Potassium 3.3 mmol/L (3.4-5.0) L 06/02/25 10:30 Creatinine 0.69 mg/dL (0.7-1.3) L 06/02/25 10:30 Glucose 156 mg/dL (65-110) H 06/02/25 10:30 POC Capillary Glucose 165 mg/dl (65-105) H 06/02/25 10:27 Lactic Acid 2.6 mmol/L (0.7-2.0) H 06/02/25 10:30 Calcium 8.3 mg/dL (8.4-10.2) L 06/02/25 10:30 Iron 21 ug/dL (49-181) L 06/02/25 10:29 % Saturation 5 % (20-50) L 06/02/25 10:29 Transferrin 413 mg/dL (206-381) H 06/02/25 10:29 Alkaline Phosphatase 161 U/L (38-126) H 06/02/25 10:30 Total Protein 8.3 g/dL (6.3-8.2) H 06/02/25 10:30 Urine Urobilinogen 2.0 mg/dL (<2.0) H 06/02/25 12:00 Leukocyte Esterase Rfl Trace ERIK/UL (Negative) H 06/02/25 12:00 Ur Barbiturates Screen Positive (Negative) A 06/02/25 12:00 Ur Amphetamine Screen Positive (Negative) A 06/02/25 12:00 Crossmatch See Detail 06/02/25 10:30 Most Recent Suicide Severity Rating Suicide Severity Rating NO RISK INDICATED 06/02/25 10:20
--- NOTE | 2025-06-02 16:58 | ADMGEN ---
This patient, Lavell Molina Jr., was admitted to Medical Room 347-01. Patient/family oriented to hospital policies and general routines including ID bracelet, bed and alarms, visiting hours, pain management, procedures, bathroom and other care routines, personal items, smoking policy, room service/diet, and visiting hours. Information on how to activate the Rapid Response Team has been discussed. Patient/Family are encouraged to report perceived risks to care and to ask questions if they do not understand what they are told or what they should do.
--- NOTE | 2025-06-02 17:16 | PM.IMHP2 ---
H&P: HPI History of Present Illness Date/Time: 06/02/25 1530 Chief Complaint: Anemia Narrative: 70-year-old male who past medical history of diabetes, ETOH abuse, methamphetamine abuse presents to the ED on 06/02/2025 with anemia. Patient has been feeling short of breath and fatigue for a few weeks and started having dark stool for about the same amount of time. Patient presented to his primary care provider on 06/01 and had labs drawn. PCPs office called the patient today did inform him that he needed to present to the ED due to a severely low hemoglobin of 6.2. Patient denies cough, fevers, chest pain. Denies abdominal pain and passing bright red blood. Patient has history of GI bleed with requirement of transfusion in the past. He is unsure what his last colonoscopy report was. Denies history of esophageal varices. Patient also states his left leg is chronically swollen in often times red. He denies significant pain to leg. Patient was supposed to have a stent to his left lower extremity at [facility] earlier this year but left AMA after becoming agitated with delays in the procedure. Patient endorses current alcohol abuse and methamphetamine abuse. Last meth and alcohol use was last night. Initial vital signs 130/69, HR 101, respirations 23, afebrile and 100% on room air. Labs reveal significant anemia with hemoglobin 6.0 and hematocrit 21.5. Sodium 136, potassium 3.3, creatinine 0.69, glucose 156. Lactic acid 2.6-the corrected to 2.0. Alk-phos 161. Troponin negative. UA without sign of infection. UDS positive for barbiturates and amphetamines. EKG reveals sinus rhythm, ST-T wave abnormality. Bilateral venous Dopplers negative for DVT. Chest abdomen pelvis CTA reads distal esophagitis. High density intraluminal material at GE junction - non cleared ingested contents versus active bleed. Nonspecific gallbladder wall thickening. Review of Systems Review of Systems: All systems reviewed & are unremarkable except as noted in HPI and below PMFSH Past Medical History Medical History Diabetes mellitus ETOH abuse Social History Social History Alcohol intake: current Drinks per week: 14 Substance use: current Substance use type: methamphetamine Last use: 06/01/25 Lack of Transportation: No Lack of Food: Never True Current Housing: I Have Housing Concerned About Future Housing: No Difficulty Paying Gas/Electric Bills: No Difficulty Paying for Meds: No Currently Unemployed: No Education: High School Diploma/GED Difficulty w/ Childcare or Family Care: No Spiritual care concerns: No Meds Home Medications and Allergies Home Medications ?Medication ?Instructions ?Recorded ?Confirmed ?Type blood-glucose sensor (FreeStyle 06/02/25 06/02/25 History Clemente 3 Sensor device) ezetimibe 10 mg tablet 10 mg PO DAILY 06/02/25 06/02/25 History furosemide 40 mg tablet 40 mg PO BID 06/02/25 06/02/25 History gabapentin 600 mg tablet 600 mg PO TID 06/02/25 06/02/25 History glimepiride 2 mg tablet 2 mg PO DAILY 06/02/25 06/02/25 History insulin degludec 100 unit/mL (3 See Rx Instructions subcut .COMPLEX 06/02/25 06/02/25 History mL) subcutaneous pen (Tresiba FlexTouch U-100 insulin) insulin lispro 100 unit/mL See Rx Instructions subcut .COMPLEX 06/02/25 06/02/25 History subcutaneous pen metformin 1,000 mg tablet 1,000 mg PO BID 06/02/25 06/02/25 History potassium chloride 20 mEq 20 meq PO DAILY 06/02/25 06/02/25 History tablet,extended release primidone 50 mg tablet 50 mg PO BID 06/02/25 06/02/25 History tadalafil 20 mg tablet 20 mg PO PRN 06/02/25 06/02/25 History Allergies Allergy/AdvReac Type Severity Reaction Status Date / Time Qgbkvgl-[id number]-DoN Reductase AdvReac Mild Cramping Verified 06/02/25 16:45 Inhibitor of the Muscles Vital Signs Vital Signs - 24 hr 06/02/25 10:20 06/02/25 11:25 06/02/25 11:30 Temperature 98 F Pulse Rate 101 H 90 94 Respiratory Rate 23 H 16 20 Blood Pressure 130/69 122/66 100/59 L Pulse Oximetry 100 100 100 Oxygen Delivery Room Air 06/02/25 11:45 06/02/25 12:00 06/02/25 12:24 Temperature Pulse Rate 98 95 100 Respiratory Rate 17 21 H 24 H Blood Pressure 98/54 L 122/62 116/56 L Pulse Oximetry 100 100 100 Oxygen Delivery 06/02/25 12:36 06/02/25 12:45 06/02/25 12:52 Temperature 98.0 F 98.4 F Pulse Rate 99 99 98 Respiratory Rate 24 H 24 H 20 Blood Pressure 114/62 108/60 109/56 L Pulse Oximetry 100 100 100 Oxygen Delivery 06/02/25 12:52 06/02/25 13:00 06/02/25 13:15 Temperature Pulse Rate 99 99 99 Respiratory Rate 19 20 20 Blood Pressure 109/56 L 120/99 H 119/97 H Pulse Oximetry 100 100 99 Oxygen Delivery 06/02/25 13:52 06/02/25 13:54 06/02/25 14:00 Temperature 98.1 F Pulse Rate 94 91 92 Respiratory Rate 20 19 18 Blood Pressure 123/67 123/67 131/68 Pulse Oximetry 99 98 97 Oxygen Delivery 06/02/25 14:30 06/02/25 14:52 06/02/25 15:34 Temperature 98.2 F Pulse Rate 90 92 91 Respiratory Rate 18 20 18 Blood Pressure 113/70 113/61 109/60 Pulse Oximetry 100 100 98 Oxygen Delivery 06/02/25 16:31 06/02/25 16:46 Temperature 98.1 F 98.2 F Pulse Rate 93 86 Respiratory Rate 18 18 Blood Pressure 134/71 114/60 Pulse Oximetry 100 100 Oxygen Delivery Exam Narrative: GENERAL: non-toxic appearing, in no acute distress. HEAD: Normocephalic, atraumatic. EYES: PERRLA. Conjunctivae clear. NECK: Trachea midline. No adenopathy, no masses. RESPIRATORY: Airway patent, respirations nonlabored. CTA. CARDIOVASCULAR: Regular rate and rhythm GASTROINTESTINAL: Abdomen is soft and nontender. No organomegaly. Bowel sounds normal in all quadrants. GENITOURINARY: Defer MUSCULOSKELETAL: Moves all extremities. No gross deformities. Swelling to left lower extremity with chronic skin changes from vascular compromise. No open wounds but redness to the lower leg. Not hot to touch and not tender. Pedal pulses intact. Leg and foot is warm. Right lower extremity with some swelling but not to the degree of the left. SKIN: Warm, dry, normal color. NEURO: A&O X4. Speech clear PSYCHIATRIC: Normal interaction Results Labs Labs: Short CBC 06/02/25 Range/Units 10:30 WBC 5.6 (4.5-10.0) K/mm3 Hgb 6.0 L* (14.0-18.0) g/dL Hct 21.5 L (42.0-52.0) % Plt Count 246 (150-375) k/mm3 BMP 06/02/25 10:30 Sodium 136 L Potassium 3.3 L Chloride 105 Carbon Dioxide 25 BUN 11 Creatinine 0.69 L Glucose 156 H Calcium 8.3 L Cardiac Enzymes 06/02/25 Range/Units 10:29 Troponin I < 0.012 (0.000-0.034) ng/mL Liver Function 06/02/25 Range/Units 10:30 Total Bilirubin 0.4 (0.2-1.3) mg/dL AST 34 (17-59) U/L ALT 27 (6-50) U/L Alkaline Phosphatase 161 H (38-126) U/L Albumin 3.5 (3.5-5.1) g/dL Urine 06/02/25 Range/Units 12:00 Urine Color Yellow (Yellow) Urine Appearance Clear (Clear) Urine pH 7.0 (5.0-9.0) Ur Specific [place] 1.017 (1.001-1.035) Urine Protein Negative (Negative) mg/dL Urine Glucose (UA) Negative (Negative) mg/dL Quality VTE Prophylaxis VTE prophylaxis: mechanical ordered Assessment and Plan Assessment and plan (1) UGIB (upper gastrointestinal bleed): Code(s): K92.2 - Gastrointestinal hemorrhage, unspecified Status: Acute Assessment and Plan: Patient with 3 week history of shortness of breath, fatigue, and dark stool. Workup at [facility] office revealed significant anemia. Patient directed to the ED where hemoglobin was found to be 6.0. Patient reports being on 81 mg aspirin daily, however not on his med rec. Chest abdomen pelvis CTA reads distal esophagitis. High density intraluminal material at GE junction - non cleared ingested contents versus active bleed. Nonspecific gallbladder wall thickening. - guaiac-positive stool - GI consulted; plan for EGD on 06/03 - trend H&H - started on pantoprazole - previous colonoscopy results not available for review - s/p 2 units PRBC-repeat H&H 7.0/23.6 (2) Cellulitis of left lower extremity: Code(s): L03.116 - Cellulitis of left lower limb Status: Acute Assessment and Plan: Appears chronic. No significant tenderness or warmth. No ulcerations or abscess. -cefazolin 1 g q.8 hours started on 06/02 (3) ETOH abuse: Code(s): F10.10 - Alcohol abuse, uncomplicated Status: Chronic Assessment and Plan: - daily ETOH use: two 24oz beers daily - last drink: Last night - CIWA protocol in place - diazepam p.r.n. - Librium scheduled - seizure precautions - neurochecks Q4H - Zofran PRN (4) Diabetes mellitus: Qualifiers: Diabetes mellitus complication detail: with other circulatory complications Diabetes mellitus complication status: with circulatory complication Diabetes mellitus continuous churn buttermaker insulin use: with continuous churn buttermaker use Diabetes mellitus type: type 2 Qualified Code(s): E11.59 - Type 2 diabetes mellitus with other circulatory complications; Z79.4 - continuous churn buttermaker (current) use of insulin Code(s): E11.9 - Type 2 diabetes mellitus without complications Status: Chronic Assessment and Plan: - hypoglycemia protocol - POC blood glucose ACHS - home medication: Glimepiride, Tresiba, lispro, metformin - correct regimen ordered: Low-dose sliding scale Plan Diet: NPO at PR DVT prophylaxis: SCDs lines/drains: PIV Fluids: 2 units PRBC Code status: Full Prior Studies I have reviewed the following patient records and this information was taken into consideration when formulating the assessment and plan.: previous labs, previous ER visits, previous hospitalizations and previous clinic visits Time Spent with Patient Time with patient: 45 - 74 minutes Hospitalist MIPS Advance Care Plan I have confirmed that the patient's Advanced Care Plan is present, code status is documented, or surrogate decision maker is listed in patient medical record.: Yes Medication Reconciliation I have utilized all available resources to obtain, update and review the patients current medications (includes all prescriptions, OTC, herbals, cannabis, and nutritional supplements).: Yes
[2025-06-02] MEDS: chlordiazePOXIDE (*CRX) 25 MG CAPSULE 50 MG PO (18:43)
[2025-06-02 20:11] LABS: Hematocrit 23.6 % (42.0-52.0); Hemoglobin 7.0 g/dL (14.0-18.0)
[2025-06-02] MEDS: GABAPENTIN 300 MG CAPSULE 600 MG PO (21:12)
[2025-06-02] MEDS: PRIMIDONE 50 MG TABLET PO (21:12)
[2025-06-03] VITALS (21 sets, daily range): BP systolic 100–128; BP diastolic 60–87; PULSE 64–81; RESP 16–19; TEMP 36.1–36.8; O2SAT 96–100
[2025-06-03] MEDS: chlordiazePOXIDE (*CRX) 25 MG CAPSULE 50 MG PO ×4 (00:38→17:02)
[2025-06-03] MEDS: ceFAZolin 1 GM in SODIUM CHLORIDE 0.9% IV 50 ML 100 ML IVPB ×3 (05:51→21:30)
[2025-06-03] MEDS: GABAPENTIN 300 MG CAPSULE 600 MG PO ×3 (05:51→21:30)
[2025-06-03 05:53] LABS: Hematocrit 23.4 % (42.0-52.0); Immature Granulocyte Percent A 0.2 % (0-0.5); Lymphocytes Absolute Auto 1.35 K/mm3 (0.9-3.2); Mean Corpuscular HGB Conc 29.1 g/dl (32-36); Mean Corpuscular Hemoglobin 22.4 pg (26-34); Mean Corpuscular Volume 77.0 fl (80-100); Nucleated Red Blood Cells Absolute Auto 0.000 K/mm3 (0.0-0.012); Nucleated Red Blood Cells Perc 0.0 % (0.0-0.2); Platelet Count Result 183 k/mm3 (150-375); Red Blood Count 3.04 M/mm3 (4.6-6.20); White Blood Count 4.2 K/mm3 (4.5-10.0)
[2025-06-03 06:01] LABS: Hemoglobin 6.8 g/dL (14.0-18.0)
[2025-06-03 06:13] LABS: Anion Gap 3 mmol/L (4-12); Blood Urea Nitrogen 8 mg/dL (9-20); Calcium 7.7 mg/dL (8.4-10.2); Carbon Dioxide 23 mmol/L (22-30); Chloride 110 mmol/L (98-107); Estimated CRCL calculation 96 ml/min; Estimated Glomerular Filt Rate > 60; Glucose 115 mg/dL (65-110); Magnesium 1.9 mg/dL (1.6-2.3); Potassium 3.5 mmol/L (3.4-5.0); Sodium 136 mmol/L (137-145)
[2025-06-03 06:37] LABS: Hypochromasia 2+
[2025-06-03 06:38] LABS: Anisocytosis 1+; Ovalocytes Occasional; Schistocytes None Seen
[2025-06-03 06:39] LABS: Polychromasia Occasional
[2025-06-03 06:40] LABS: Burr Cells 1+; Target Cells Occasional
[2025-06-03] MEDS: SODIUM CHLORIDE 0.9% IV 250 ML 30 ML IV CONT ×2 (07:28→12:12)
--- NOTE | 2025-06-03 07:35 | WPDGICN ---
Assessment and Plan Assessment and plan (1) UGIB (upper gastrointestinal bleed): Code(s): K92.2 - Gastrointestinal hemorrhage, unspecified Status: Acute Assessment and Plan: differential ulcer, esophagitis. Reviewed CT scan and possible recent bleeding near gej will do egd today already on iv protonix s/p blood transfusion more recommendations after egd (2) Melena: Code(s): K92.1 - Melena Status: Acute Assessment and Plan: iv protonix (3) Acute blood loss anemia: Code(s): D62 - Acute posthemorrhagic anemia Status: Acute Assessment and Plan: keep hgb>7 (4) ETOH abuse: Code(s): F10.10 - Alcohol abuse, uncomplicated Status: Chronic Assessment and Plan: thiamine ciwa protocol (5) Cellulitis of left lower extremity: Code(s): L03.116 - Cellulitis of left lower limb Status: Acute Assessment and Plan: on abx (6) Drug abuse and dependence: Code(s): F19.20 - Other psychoactive substance dependence, uncomplicated Status: Acute (7) Diabetes mellitus: Qualifiers: Diabetes mellitus type: type 2 Diabetes mellitus long term acute care registered nurse insulin use: with prison use Diabetes mellitus complication status: with circulatory complication Diabetes mellitus complication detail: with other circulatory complications Qualified Code(s): E11.59 - Type 2 diabetes mellitus with other circulatory complications; Z79.4 - USP (current) use of insulin Code(s): E11.9 - Type 2 diabetes mellitus without complications Status: Chronic GI Consult Note Consult date/time: 06/03/25 07:36 Reason for consult: dark stools, acute anemia HPI: Lavell Molina Jr. is a 70 year old male with past medical history of diabetes, ETOH abuse, methamphetamine abuse presents to the ED on 06/02/2025 with anemia. He noted more short of breath and fatigue for a few weeks, also had dark stool for about the same amount of time, PCP had labs drawn and was advised to come to ER because low H/H. He says that had egd and colonoscopy about 5 years ago but he is not best historian. Also states his left leg is chronically swollen and often times red, he was supposed to have a stent to his left lower extremity at [facility] earlier this year but left AMA, now started on iv abx for cellulitis. Also current alcohol abuse and methamphetamine abuse, last use yesterday. Labs hemoglobin 6.0 given blood transfusion. Sodium 136, potassium 3.3, creatinine 0.69, glucose 156. Lactic acid 2.6. Alk-phos 161. Troponin negative. UA without sign of infection. UDS positive for barbiturates and amphetamines. Bilateral venous Dopplers negative for DVT. Chest abdomen pelvis CTA reads distal esophagitis. High density intraluminal material at GE junction - non cleared ingested contents versus active bleed. He is comfortable and ready to get EGD. Review of Systems Constitutional: Constitutional: Reports lethargy and Reports weakness Eyes: Eyes: Denies blurry vision ENT: Reports Normal hearing present Cardiovascular: Cardiovascular: Denies chest pain Respiratory: Respiratory: Reports dyspnea on exertion Gastrointestinal: Gastrointestinal: Denies abdominal pain and Reports melena Genitourinary: Genitourinary: Denies dysuria Musculoskeletal: Musculoskeletal: Denies neck pain Integumentary/Breasts: Skin/Breast: Denies rash Neurologic: Denies Abnormal speech present Psychiatric: Psychiatric: Denies behavioral changes [facility] Past Medical History Medical History Drug abuse and dependence Acute blood loss anemia Melena Diabetes mellitus ETOH abuse Social History Social History Alcohol intake: current Drinks per week: 14 Substance use: current Substance use type: methamphetamine Last use: 06/01/25 Lack of Transportation: No Lack of Food: Never True Current Housing: I Have Housing Concerned About Future Housing: No Difficulty Paying Gas/Electric Bills: No Difficulty Paying for Meds: No Currently Unemployed: No Education: High School Diploma/GED Difficulty w/ Childcare or Family Care: No Spiritual care concerns: No Meds Home Medications and Allergies Home Medications ?Medication ?Instructions ?Recorded ?Confirmed ?Type blood-glucose sensor (FreeStyle 06/02/25 06/02/25 History Clemente 3 Sensor device) ezetimibe 10 mg tablet 10 mg PO DAILY 06/02/25 06/02/25 History furosemide 40 mg tablet 40 mg PO BID 06/02/25 06/02/25 History gabapentin 600 mg tablet 600 mg PO TID 06/02/25 06/02/25 History glimepiride 2 mg tablet 2 mg PO DAILY 06/02/25 06/02/25 History insulin degludec 100 unit/mL (3 See Rx Instructions subcut .COMPLEX 06/02/25 06/02/25 History mL) subcutaneous pen (Tresiba FlexTouch U-100 insulin) insulin lispro 100 unit/mL See Rx Instructions subcut .COMPLEX 06/02/25 06/02/25 History subcutaneous pen metformin 1,000 mg tablet 1,000 mg PO BID 06/02/25 06/02/25 History potassium chloride 20 mEq 20 meq PO DAILY 06/02/25 06/02/25 History tablet,extended release primidone 50 mg tablet 50 mg PO BID 06/02/25 06/02/25 History tadalafil 20 mg tablet 20 mg PO PRN 06/02/25 06/02/25 History Allergies Allergy/AdvReac Type Severity Reaction Status Date / Time [id number]-[id number] Reductase AdvReac Mild Cramping Verified 06/03/25 07:44 Inhibitor of the Muscles Vital Signs Vital Signs - 24 hr 06/02/25 10:20 06/02/25 11:25 06/02/25 11:30 Temperature 98 F Pulse Rate 101 H 90 94 Respiratory Rate 23 H 16 20 Blood Pressure 130/69 122/66 100/59 L Pulse Oximetry 100 100 100 Oxygen Delivery Room Air 06/02/25 11:45 06/02/25 12:00 06/02/25 12:24 Temperature Pulse Rate 98 95 100 Respiratory Rate 17 21 H 24 H Blood Pressure 98/54 L 122/62 116/56 L Pulse Oximetry 100 100 100 Oxygen Delivery 06/02/25 12:36 06/02/25 12:45 06/02/25 12:52 Temperature 98.0 F 98.4 F Pulse Rate 99 99 98 Respiratory Rate 24 H 24 H 20 Blood Pressure 114/62 108/60 109/56 L Pulse Oximetry 100 100 100 Oxygen Delivery 06/02/25 12:52 06/02/25 13:00 06/02/25 13:15 Temperature Pulse Rate 99 99 99 Respiratory Rate 19 20 20 Blood Pressure 109/56 L 120/99 H 119/97 H Pulse Oximetry 100 100 99 Oxygen Delivery 06/02/25 13:52 06/02/25 13:54 06/02/25 14:00 Temperature 98.1 F Pulse Rate 94 91 92 Respiratory Rate 20 19 18 Blood Pressure 123/67 123/67 131/68 Pulse Oximetry 99 98 97 Oxygen Delivery 06/02/25 14:30 12/05/25 14:52 06/02/25 15:34 Temperature 98.2 F Pulse Rate 90 92 91 Respiratory Rate 18 20 18 Blood Pressure 113/70 113/61 109/60 Pulse Oximetry 100 100 98 Oxygen Delivery 06/02/25 16:31 06/02/25 16:46 06/02/25 17:46 Temperature 98.1 F 98.2 F 98.4 F Pulse Rate 93 86 86 Respiratory Rate 18 18 16 Blood Pressure 134/71 114/60 126/68 Pulse Oximetry 100 100 100 Oxygen Delivery 06/02/25 18:46 06/02/25 19:12 06/02/25 20:00 Temperature 98.6 F 98.4 F Pulse Rate 94 90 Respiratory Rate 18 16 Blood Pressure 137/69 134/60 Pulse Oximetry 100 100 Oxygen Delivery Room Air 06/02/25 20:00 06/02/25 20:37 06/03/25 00:00 Temperature 98.2 F Pulse Rate 89 84 80 Respiratory Rate 16 Blood Pressure 109/60 Pulse Oximetry 99 Oxygen Delivery 06/03/25 04:00 06/03/25 06:01 06/03/25 07:07 Temperature 97.1 F L 96.9 F L Pulse Rate 76 71 70 Respiratory Rate 16 16 Blood Pressure 115/62 116/66 Pulse Oximetry 100 98 Oxygen Delivery 06/03/25 07:23 Temperature 97.5 F L Pulse Rate 73 Respiratory Rate 16 Blood Pressure 117/72 Pulse Oximetry 97 Oxygen Delivery Exam Const: General: comfortable and no acute distress HENMT: Face/Nose/Sinus: Normal nares present Eyes: General: appearance normal, both eyes and all related structures Neck: Neck: supple Resp: Auscultation: clear to auscultation bilaterally Cardio: Rate: regular rate Rhythm: regular rhythm GI: Inspection: non-distended GI Palp: Yes Soft to palpation and No Tenderness to palpation present (GI) Auscultation: normal bowel sounds Skin: Other: redness left leg Neuro: Speech: normal speech Motor exam (neuro): 5/5 motor strength present throughout Extrem: Other: edema left leg Psych: Mental Status: mental status grossly normal Results Labs 06/03/25 05:38 06/03/25 05:38 Labs: Short CBC 06/02/25 06/02/25 06/03/25 Range/Units 10:30 20:07 05:38 WBC 5.6 4.2 L (4.5-10.0) K/mm3 Hgb 6.0 L* 7.0 L 6.8 L* (14.0-18.0) g/dL Hct 21.5 L 23.6 L 23.4 L (42.0-52.0) % Plt Count 246 183 (150-375) k/mm3 BMP 06/02/25 06/03/25 10:30 05:38 Sodium 136 L 136 L Potassium 3.3 L 3.5 Chloride 105 110 H Carbon Dioxide 25 23 BUN 11 8 L Creatinine 0.69 L 0.70 Glucose 156 H 115 H Calcium 8.3 L 7.7 L Cardiac Enzymes 06/02/25 Range/Units 10:29 Troponin I < 0.012 (0.000-0.034) ng/mL Liver Function 06/02/25 Range/Units 10:30 Total Bilirubin 0.4 (0.2-1.3) mg/dL AST 34 (17-59) U/L ALT 27 (6-50) U/L Alkaline Phosphatase 161 H (38-126) U/L Albumin 3.5 (3.5-5.1) g/dL Urine 06/02/25 Range/Units 12:00 Urine Color Yellow (Yellow) Urine Appearance Clear (Clear) Urine pH 7.0 (5.0-9.0) Ur Specific C[place] 1.017 (1.001-1.035) Urine Protein Negative (Negative) mg/dL Urine Glucose (UA) Negative (Negative) mg/dL
[2025-06-03] MEDS: LACTATED RINGERS 1,000 ML 150 ML IV CONT (07:40)
--- NOTE | 2025-06-03 07:57 | S_PTH ---
PATIENT: Lavell Molina Jr. LOC: [id number] #:[id number] AGE/SX: 70/M ROOM: 347 RE06/03/[address]: Lidia Washburn APRN : 1955 BED: 01 DIS: 06/05/2025 SPEC #: [id number] RECD: 06/05/25 07:39 STATUS: SHIVAM RE #: [id number] SY: 06/03/25 07:[address]: Nhan Parsons DEPT: [facility] Surgical RECD BY: Liana Torres ENTERED: 06/05/25 07:40 SP TYPE: Surgical OTHR DR: MING Gasca, MD Ac shirley Oca, MD Tissues: A - Gastric Biopsy Procedures: Hematoxylin and Eosin Stain Gross and Microscopic Level 4 H.Pylori
--- NOTE | 2025-06-03 07:57 | WPDANESEPPF ---
Anes - Initial Pre Proc Eval Procedure: Operation Date: 06/03/25 07:30 Proposed Procedures p Esophagogastroduodenoscopy - Nhan Parsons MD Date/Time: 06/03/25 07:57 Surgeon: Ac shirley Oca, MD Pre Op Diagnosis: UGIB, Anemia, Cellulitis LLE Patient Data Age: 70 Gender: M Height: 1.78 m Weight: 96.2 kg Last Vital Signs Temp 36.4 C L 06/03/25 07:23 Pulse 73 06/03/25 07:23 Resp 16 06/03/25 07:23 BP 117/72 06/03/25 07:23 Pulse Ox 97 06/03/25 07:23 O2 Del Method Room Air 06/02/25 20:00 Allergies Allergy/AdvReac Type Severity Reaction Status Date / Time [id number] Reductase AdvReac Mild Cramping Verified 06/03/25 07:44 Inhibitor of the Muscles Home Medications ?Medication ?Instructions ?Recorded ?Confirmed ?Type blood-glucose sensor (FreeStyle 06/02/25 06/02/25 History Clemente 3 Sensor device) ezetimibe 10 mg tablet 10 mg PO DAILY 06/02/25 06/02/25 History furosemide 40 mg tablet 40 mg PO BID 06/02/25 06/02/25 History gabapentin 600 mg tablet 600 mg PO TID 06/02/25 06/02/25 History glimepiride 2 mg tablet 2 mg PO DAILY 06/02/25 06/02/25 History insulin degludec 100 unit/mL (3 See Rx Instructions subcut .COMPLEX 06/02/25 06/02/25 History mL) subcutaneous pen (Tresiba FlexTouch U-100 insulin) insulin lispro 100 unit/mL See Rx Instructions subcut .COMPLEX 06/02/25 06/02/25 History subcutaneous pen metformin 1,000 mg tablet 1,000 mg PO BID 06/02/25 06/02/25 History potassium chloride 20 mEq 20 meq PO DAILY 06/02/25 06/02/25 History tablet,extended release primidone 50 mg tablet 50 mg PO BID 06/02/25 06/02/25 History tadalafil 20 mg tablet 20 mg PO PRN 06/02/25 06/02/25 History Laboratory Tests 06/02/25 06/02/2506/02/25 10:27 10:29 10:30 WBC 5.6 K/mm3 (4.5-10.0) RBC 2.81 L M/mm3 (4.6-6.20) Hgb 6.0 L* g/dL (14.0-18.0) Hct 21.5 L % (42.0-52.0) MCV 76.5 L fl (80-100) MCH 21.4 L pg (26-34) MCHC 27.9 L g/dl (32-36) RDW 20.2 H % (11.5-14.5) Plt Count 246 k/mm3 (150-375) MPV 9.4 fl (7.4-10.4) Immature Gran % (Auto) 0.2 % (0-0.5) Neut % (Auto) 55.8 % (45.5-73.1) Lymph % (Auto) 29.8 % (18.3-44.2) Gordon % (Auto) 12.1 H % (2.6-8.5) Eos % (Auto) 0.9 % (0-4.4) Baso % (Auto) 1.2 % (0.2-1.2) Lymph # (Auto) 1.67 K/mm3 (0.9-3.2) Gordon # (Auto) 0.7 H K/mm3 (0.1-0.6) Eos # (Auto) 0.1 K/mm3 (0-0.3) Baso # (Auto) 0.1 K/mm3 (0.0-0.1) Abs Immat Gran (auto) 0.01 K/mm3 (0.00-0.031) Absolute Neuts (auto) 3.1 K/mm3 (1.3-6.7) Absolute Nucleated RBC 0.020 H K/mm3 (0.0-0.012) Band Neutrophils % Not Reportable Nucleated RBC % 0.4 H % (0.0-0.2) Platelet Estimate Adequate (Adequate) Polychromasia 1+ Hypochromasia 2+ Anisocytosis 2+ Target Cells Occasional Ovalocytes Occasional Stomatocytes 1+ Woodlyn Cells Schistocytes None seen Absolute Retic 0.09 10^6/uL (0.02-0.10) Percent Retic 3.23 % (0.7-4.3) Immature Retic Fraction 29.4 H % (3.0-15.9) Retic Hgb Content 15.6 L pg (28.2-36.6) PT 14.6 Seconds (11.1-14.7) INR 1.1 APTT 30.4 Seconds (22.3-36.8) Sodium 136 L mmol/L (137-145) Potassium 3.3 L mmol/L (3.4-5.0) Chloride 105 mmol/L (98-107) Carbon Dioxide 25 mmol/L (22-30) Anion Gap 6 mmol/L (4-12) BUN 11 mg/dL (9-20) Creatinine 0.69 L mg/dL (0.7-1.3) Estim Creat Clear Calc 97 ml/min Estimated GFR > 60 (59 - ) Glucose 156 H mg/dL (65-110) POC Capillary Glucose 165 H mg/dl (65-105) Lactic Acid 2.6 H mmol/L (0.7-2.0) Calcium 8.3 L mg/dL (8.4-10.2) Magnesium 1.6 mg/dL (1.6-2.3) Iron 21 L ug/dL (49-181) TIBC 459 ug/dL (265-497) % Saturation 5 L % (20-50) Transferrin 413 H mg/dL (206-381) Ferritin 19.00 ng/mL (11.1-264) Total Bilirubin 0.4 mg/dL (0.2-1.3) AST 34 U/L (17-59) ALT 27 U/L (6-50) Alkaline Phosphatase 161 H U/L (38-126) Troponin I < 0.012 ng/mL (0.000-0.034) NT-Pro-B Natriuret Pep 71 pg/mL (19.9-100) Total Protein 8.3 H g/dL (6.3-8.2) Albumin 3.5 g/dL (3.5-5.1) Vitamin B12 404.0 pg/mL (239-931) Folate 19.6 ng/mL (2.76->20) TSH (Reflex) 2.780 uIU/mL (0.465-4.68) Urine Color Urine Appearance Urine pH Ur Specific Hamel Urine Protein Urine Glucose (UA) Urine Ketones Ur Blood (Man) Urine Nitrate Urine Bilirubin Urine Urobilinogen Leukocyte Esterase Rfl Urine RBC Urine WBC Ur Squamous Epith Cells Urine Bacteria Urine Casts Urine Opiates Screen Urine Methadone Screen Ur Barbiturates Screen Ur Phencyclidine Scrn Ur Amphetamine Screen U Benzodiazepines Scrn Urine Cocaine Screen U Cannabinoids Screen Ethyl Alcohol < 10 mg/dL (<10) Blood Type O Positive Antibody Screen Negative Crossmatch See Detail 06/02/25 06/02/25 06/02/25 12:00 13:10 18:07 WBC RBC Hgb Hct MCV MCH MCHC RDW Plt Count MPV Immature Gran % (Auto) Neut % (Auto) Lymph % (Auto) Gordon % (Auto) Eos % (Auto) Baso % (Auto) Lymph # (Auto) Gordon # (Auto) Eos # (Auto) Baso # (Auto) Abs Immat Gran (auto) Absolute Neuts (auto) Absolute Nucleated RBC Band Neutrophils % Nucleated RBC % Platelet Estimate Polychromasia Hypochromasia Anisocytosis Target Cells Ovalocytes Stomatocytes Woodlyn Cells Schistocytes Absolute Retic Percent Retic Immature Retic Fraction Retic Hgb Content PT INR APTT Sodium Potassium Chloride Carbon Dioxide Anion Gap BUN Creatinine Estim Creat Clear Calc Estimated GFR Glucose POC Capillary Glucose 85 mg/dl (65-105) Lactic Acid 2.0 mmol/L (0.7-2.0) Calcium Magnesium Iron TIBC % Saturation Transferrin Ferritin Total Bilirubin AST ALT Alkaline Phosphatase Troponin I NT-Pro-B Natriuret Pep Total Protein Albumin Vitamin B12 Folate TSH (Reflex) Urine Color Yellow (Yellow) Urine Appearance Clear (Clear) Urine pH 7.0 (5.0-9.0) Ur Specific Hamel 1.017 (1.001-1.035) Urine Protein Negative mg/dL (Negative) Urine Glucose (UA) Negative mg/dL (Negative) Urine Ketones Negative mg/dL (Negative) Ur Blood (Man) Negative (Negative) Urine Nitrate Negative (Negative) Urine Bilirubin Negative (Negative) Urine Urobilinogen 2.0 H mg/dL (<2.0) Leukocyte Esterase Rfl Trace H ERIK/UL (Negative) Urine RBC 0-2 /hpf (0-2) Urine WBC 0-5 /hpf (0-3) Ur Squamous Epith Cells None seen /hpf (Few) Urine Bacteria None seen /hpf Urine Casts 0-2 Urine Opiates Screen Negative (Negative) Urine Methadone Screen Negative (Negative) Ur Barbiturates Screen Positive A (Negative) Ur Phencyclidine Scrn Negative (Negative) Ur Amphetamine Screen Positive A (Negative) U Benzodiazepines Scrn Negative (Negative) Urine Cocaine Screen Negative (Negative) U Cannabinoids Screen Negative (Negative) Ethyl Alcohol Blood Type Antibody Screen Crossmatch 06/02/25 06/02/25 06/03/25 20:07 23:03 05:38 WBC 4.2 L K/mm3 (4.5-10.0) RBC 3.04 L M/mm3 (4.6-6.20) Hgb 7.0 L g/dL 6.8 L* g/dL (14.0-18.0) (14.0-18.0) Hct 23.6 L % 23.4 L % (42.0-52.0) (42.0-52.0) MCV 77.0 L fl (80-100) MCH 22.4 L pg (26-34) MCHC 29.1 L g/dl (32-36) RDW 19.5 H % (11.5-14.5) Plt Count 183 k/mm3 (150-375) MPV 9.2 fl (7.4-10.4) Immature Gran % (Auto) 0.2 % (0-0.5) Neut % (Auto) 50.4 % (45.5-73.1) Lymph % (Auto) 31.9 % (18.3-44.2) Gordon % (Auto) 14.2 H % (2.6-8.5) Eos % (Auto) 1.9 % (0-4.4) Baso % (Auto) 1.4 H % (0.2-1.2) Lymph # (Auto) 1.35 K/mm3 (0.9-3.2) Gordon # (Auto) 0.6 K/mm3 (0.1-0.6) Eos # (Auto) 0.1 K/mm3 (0-0.3) Baso # (Auto) 0.1 K/mm3 (0.0-0.1) Abs Immat Gran (auto) 0.01 K/mm3 (0.00-0.031) Absolute Neuts (auto) 2.1 K/mm3 (1.3-6.7) Absolute Nucleated RBC 0.000 K/mm3 (0.0-0.012) Band Neutrophils % Not Reportable Nucleated RBC % 0.0 % (0.0-0.2) Platelet Estimate Adequate (Adequate) Polychromasia Occasional Hypochromasia 2+ Anisocytosis 1+ Target Cells Occasional Ovalocytes Occasional Stomatocytes Dayan Cells 1+ Schistocytes None seen Absolute Retic Percent Retic Immature Retic Fraction Retic Hgb Content PT INR APTT Sodium 136 L mmol/L (137-145) Potassium 3.5 mmol/L (3.4-5.0) Chloride 110 H mmol/L (98-107) Carbon Dioxide 23 mmol/L (22-30) Anion Gap 3 L mmol/L (4-12) BUN 8 L mg/dL (9-20) Creatinine 0.70 mg/dL (0.7-1.3) Estim Creat Clear Calc 96 ml/min Estimated GFR > 60 (59 - ) Glucose 115 H mg/dL (65-110) POC Capillary Glucose 175 H mg/dl (65-105) Lactic Acid Calcium 7.7 L mg/dL (8.4-10.2) Magnesium 1.9 mg/dL (1.6-2.3) Iron TIBC % Saturation Transferrin Ferritin Total Bilirubin AST ALT Alkaline Phosphatase Troponin I NT-Pro-B Natriuret Pep Total Protein Albumin Vitamin B12 Folate TSH (Reflex) Urine Color Urine Appearance Urine pH Ur Specific Hamel Urine Protein Urine Glucose (UA) Urine Ketones Ur Blood (Man) Urine Nitrate Urine Bilirubin Urine Urobilinogen Leukocyte Esterase Rfl Urine RBC Urine WBC Ur Squamous Epith Cells Urine Bacteria Urine Casts Urine Opiates Screen Urine Methadone Screen Ur Barbiturates Screen Ur Phencyclidine Scrn Ur Amphetamine Screen U Benzodiazepines Scrn Urine Cocaine Screen U Cannabinoids Screen Ethyl Alcohol Blood Type Antibody Screen Crossmatch 06/03/25 06:03 WBC RBC Hgb Hct MCV MCH MCHC RDW Plt Count MPV Immature Gran % (Auto) Neut % (Auto) Lymph % (Auto) Gordon % (Auto) Eos % (Auto) Baso % (Auto) Lymph # (Auto) Gordon # (Auto) Eos # (Auto) Baso # (Auto) Abs Immat Gran (auto) Absolute Neuts (auto) Absolute Nucleated RBC Band Neutrophils % Nucleated RBC % Platelet Estimate Polychromasia Hypochromasia Anisocytosis Target Cells Ovalocytes Stomatocytes Woodlyn Cells Schistocytes Absolute Retic Percent Retic Immature Retic Fraction Retic Hgb Content PT INR APTT Sodium Potassium Chloride Carbon Dioxide Anion Gap BUN Creatinine Estim Creat Clear Calc Estimated GFR Glucose POC Capillary Glucose 120 H mg/dl (65-105) Lactic Acid Calcium Magnesium Iron TIBC % Saturation Transferrin Ferritin Total Bilirubin AST ALT Alkaline Phosphatase Troponin I NT-Pro-B Natriuret Pep Total Protein Albumin Vitamin B12 Folate TSH (Reflex) Urine Color Urine Appearance Urine pH Ur Specific Ham[place] Urine Protein Urine Glucose (UA) Urine Ketones Ur Blood (Man) Urine Nitrate Urine Bilirubin Urine Urobilinogen Leukocyte Esterase Rfl Urine RBC Urine WBC Ur Squamous Epith Cells Urine Bacteria Urine Casts Urine Opiates Screen Urine Methadone Screen Ur Barbiturates Screen Ur Phencyclidine Scrn Ur Amphetamine Screen U Benzodiazepines Scrn Urine Cocaine Screen U Cannabinoids Screen Ethyl Alcohol Blood Type Antibody Screen Crossmatch Patient hx anesthesia problems: none Family hx anesthesia problems: none Results Review: All pre-operative results and documents have been reviewed as part of the pre-operative evaluation. [facility] Past Medical History Medical History Diabetes mellitus ETOH abuse Social History Social History Alcohol intake: current Drinks per week: 14 Substance use: current Substance use type: methamphetamine Last use: 06/01/25 Lack of Transportation: No Lack of Food: Never True Current Housing: I Have Housing Concerned About Future Housing: No Difficulty Paying Gas/Electric Bills: No Difficulty Paying for Meds: No Currently Unemployed: No Education: High School Diploma/GED Difficulty w/ Childcare or Family Care: No Spiritual care concerns: No Anes - Eval Final PreProcedure Day of Procedure 06/03/25 07:57 Patient weight: overweight Heart: regular rate and rhythm Lungs: decreased breath sounds Airway: Mallampati scale class II Neurological: alert and oriented Last oral intake: >/= 8 hours ASA classification: IV Emergent: no Anesthetic plan: proceed Anesthesia type and monitoring: general GIVS and standard monitoring Results Review: All pre-operative results and documents have been reviewed as part of the pre-operative evaluation. Informed Consent: The patient's anesthetic plan and its attendant risks and benefits were discussed with the patient/family/POA. Questions were solicited and answers provided to the satisfaction of the patient/family/POA.
[2025-06-03] MEDS: FUROSEMIDE 40 MG TABLET PO ×2 (09:39→17:02)
[2025-06-03] MEDS: EZETIMIBE 10 MG TABLET PO (09:39)
[2025-06-03] MEDS: PANTOPRAZOLE SODIUM IV 40 MG VIAL IV PUSH ×2 (09:40→21:30)
[2025-06-03] MEDS: MULTIVITAMINS THERAPEUTIC TAB (*BKC) 1 TABLET PO (09:40)
[2025-06-03] MEDS: PRIMIDONE 50 MG TABLET PO ×2 (09:40→21:29)
[2025-06-03] MEDS: POTASSIUM CHLORIDE 20 MEQ ER TABLET PO (09:40)
[2025-06-03] MEDS: FOLIC ACID 1 MG TABLET PO (09:40)
[2025-06-03] MEDS: THIAMINE HCL 100 MG TABLET PO (09:40)
[2025-06-03 11:46] LABS: Hematocrit 26.5 % (42.0-52.0); Hemoglobin 8.0 g/dL (14.0-18.0)
--- NOTE | 2025-06-03 14:29 | P.PNIM_ITS ---
Assessment and Plan Assessment and Plan (1) Acute blood loss anemia: Code(s): D62 - Acute posthemorrhagic anemia Status: Acute Assessment and Plan: Patient with 3 week history of shortness of breath, fatigue, and dark stool. [facility]up [facility] revealed significant anemia. Patient directed to the ED where hemoglobin was found to be 6.0. Patient reports being on 81 mg aspirin daily, however not on his med rec. Chest abdomen pelvis CTA reads distal esophagitis. High density intraluminal material at GE junction - non cleared ingested contents versus active bleed. Nonspecific gallbladder wall thickening. guaiac-positive stool * GI consulted * EGD on 06/03 showed gastritis * trend H&H q6hr * Hgb dropped to 6.8 after transfusion gave another unit PRBC total 4 Units * PPI BID * Plan for colonoscopy 06/05/2025 * Bowel prep 06/04/2025 (2) Cellulitis of left lower extremity: Code(s): L03.116 - Cellulitis of left lower limb Status: Acute Assessment and Plan: Erythema and warmth to LLE patient with HX PVD suppose to be following with vascular at [facility] * cefazolin 1 g q.8 hours started on 06/02 * Venous dopplers negative (3) ETOH abuse: Code(s): F10.10 - Alcohol abuse, uncomplicated Status: Chronic Assessment and Plan: daily ETOH use: two 24oz beers daily last drink: Last night * Thiamine, folic acid, and multi-vitamin * PPI BID * librium Q6hr * Diazepam PRN for seizure activity * CIWA * Monitor and replenish electrolytes as needed * Seizure precautions if indicated (4) Diabetes mellitus: Qualifiers: Diabetes mellitus type: type 2 Diabetes mellitus group home insulin use: with group home use Diabetes mellitus complication status: with circulatory complication Diabetes mellitus complication detail: with other circulatory complications Qualified Code(s): E11.59 - Type 2 diabetes mellitus with other circulatory complications; Z79.4 - FPC (current) use of insulin Code(s): E11.9 - Type 2 diabetes mellitus without complications Status: Chronic Assessment and Plan: * hypoglycemia protocol * POC blood glucose ACHS * low Dose SSI * home medication: Glimepiride, Tresiba, lispro, metformin held * Diabetic diet (5) Drug abuse and dependence: Code(s): F19.20 - Other psychoactive substance dependence, uncomplicated Status: Acute Assessment and Plan: Patient reports methamphetamine use 1 day prior to arrival * Monitor for withdrawal symptoms * Encouraged immediate cessation Plan Code status: Full code per patient DVT prophylaxis: SCD's Stress ulcer prophylaxis: Protonix 40 BID PT/OT notes: Ambulatory Disposition: Patient continues admission to the medical unit for further evaluation and treatment acute blood loss anemia possibly secondary to GI bleed patient underwent an EGD today plans for colonoscopy on 06/05/2025. Medical Record Review I have reviewed the following patient records and this information was taken into consideration when formulating the assessment and plan.: previous labs, previous ER visits and previous hospitalizations Consultations Consultations: I have discussed the care of this pt with the consulting providers. Time Spent With Patient Time with patient: 15 - 25 minutes Subjective Date/time seen: 06/03/25 14:29 Interval history: Patient is a 70-year-old male admitted for further evaluation and treatment anemia with acute blood loss secondary to possible GI bleed. 06/03/2025: Assumed Care Patient resting comfortably has some discomfort to bilateral lower extremities which is postop follow-up with vascular outpatient for venous Dopplers were negative for any DVT. Patient denied any chest pain shortness a breath nausea, vomiting, dizziness did report some constipation. Review of Systems Review of Systems: All systems reviewed & are unremarkable except as noted in HPI and below Exam Const: General: comfortable and no acute distress HENMT: Mouth: Yes moist mucous membranes Eyes: General: appearance normal, both eyes and all related structures Neck: Neck: supple Resp: Effort & Inspection: normal respiratory effort Auscultation: clear to auscultation bilaterally Cardio: Rate: regular rate Rhythm: regular rhythm GI: GI Palp: Yes Soft to palpation Auscultation: normal bowel sounds Skin: General skin exam: normal color, no rashes or lesions noted and erythema (Left lower extremity) Wounds: no wounds Neuro: General: gait normal Speech: normal speech Motor exam (neuro): 5/5 motor strength present throughout Sensory Exam: normal sensation Extrem: Other: Left lower extremity with erythema and edema warm to touch Psych: Appearance: disheveled Mental Status: mental status grossly normal Speech and movement: Normal speech and movement present and Clear speech present Attitude: cooperative Thought content: Yes Normal thought content present Insight: Poor insight present (Psych) Judgement: Poor judgement present (Psych) Objective Data Vital Signs Vital Signs: Vital Signs - 24 hr 06/02/25 14:30 06/02/25 14:52 06/02/25 15:34 Temperature 98.2 F Pulse Rate 90 92 91 Respiratory Rate 18 20 18 Blood Pressure 113/70 113/61 109/60 Pulse Oximetry 100 100 98 Oxygen Delivery 06/02/25 16:31 06/02/25 16:46 06/02/25 17:46 Temperature 98.1 F 98.2 F 98.4 F Pulse Rate 93 86 86 Respiratory Rate 18 18 16 Blood Pressure 134/71 114/60 126/68 Pulse Oximetry 100 100 100 Oxygen Delivery 06/02/25 18:46 06/02/25 19:12 06/02/25 20:00 Temperature 98.6 F 98.4 F Pulse Rate 94 90 Respiratory Rate 18 16 Blood Pressure 137/69 134/60 Pulse Oximetry 100 100 Oxygen Delivery Room Air 06/02/25 20:00 06/02/25 20:37 06/03/25 00:00 Temperature 98.2 F Pulse Rate 89 84 80 Respiratory Rate 16 Blood Pressure 109/60 Pulse Oximetry 99 Oxygen Delivery 06/03/25 04:00 06/03/25 06:01 06/03/25 07:07 Temperature 97.1 F L 96.9 F L Pulse Rate 76 71 70 Respiratory Rate 16 16 Blood Pressure 115/62 116/66 Pulse Oximetry 100 98 Oxygen Delivery 06/03/25 07:23 06/03/25 07:30 06/03/25 07:53 Temperature 97.5 F L 98.2 F Pulse Rate 73 76 71 Respiratory Rate 16 18 19 Blood Pressure 117/72 112/60 109/60 Pulse Oximetry 97 96 99 Oxygen Delivery Room Air Room Air 06/03/25 07:53 06/03/25 08:00 06/03/25 08:03 Temperature 98.0 F Pulse Rate 71 72 Respiratory Rate 19 16 Blood Pressure 109/60 110/62 Pulse Oximetry 99 100 Oxygen Delivery Room Air Room Air 06/03/25 08:13 06/03/25 08:13 06/03/25 08:36 Temperature 97.8 F 97.9 F Pulse Rate 70 70 77 Respiratory Rate 18 18 18 Blood Pressure 124/69 124/69 114/65 Pulse Oximetry 100 100 100 Oxygen Delivery Room Air 06/03/25 09:23 06/03/25 10:28 06/03/25 12:00 Temperature 97.5 F L 97.7 F Pulse Rate 74 72 65 Respiratory Rate 18 18 Blood Pressure 100/86 114/60 Pulse Oximetry 100 100 Oxygen Delivery 06/03/25 12:08 06/03/25 12:24 06/03/25 13:24 Temperature 98.2 F 97.9 F 97.7 F Pulse Rate 69 77 64 Respiratory Rate 16 18 16 Blood Pressure 128/87 127/68 112/60 Pulse Oximetry 98 99 100 Oxygen Delivery Intake/Output Intake/Output: Intake & Output 05/31/25 06/01/25 06/02/25 06/03/25 23:59 23:59 23:59 23:59 Intake Total 1090 1180 Output Total 200 2000 Balance 890 -820 Meds/Results Medications: Active Medications Generic Name Dose Route Start Last Admin Trade Name Freq PRN Reason Stop Dose Admin Acetaminophen 650 mg 06/02/25 13:41 Acetaminophen 325 Mg Tablet PO Q4H PRN Mild Pain (1-3) or Fever Chlordiazepoxide HCl 50 mg 06/02/25 18:00 06/03/25 12:11 Chlordiazepoxide (*Crx) 25 Mg Capsule PO 50 mg Q6HR MANINDER Administration Dextrose 12.5 gm 06/02/25 17:31 Dextrose 50% 25 Gm/50 Ml Syringe IV PUSH PRN PRN Hypoglycemia Protocol Diazepam 5 mg 06/02/25 17:54 Diazepam Inj (*Crx) 10 Mg/2 Ml Syringe IV PUSH Q2H PRN Alcohol Withdrawal Ezetimibe 10 mg 06/03/25 09:00 06/03/25 09:39 Ezetimibe 10 Mg Tablet PO 10 mg DAILY MANINDER Administration Folic Acid 1 mg 06/03/25 09:25 06/03/25 09:40 Folic Acid 1 Mg Tablet PO 1 mg DAILY MANINDER Administration Furosemide 40 mg 06/03/25 09:00 06/03/25 09:39 Furosemide 40 Mg Tablet PO 40 mg BID MANINDER Administration Gabapentin 600 mg 06/02/25 22:00 06/03/25 13:07 Gabapentin 300 Mg Capsule PO 600 mg Q8HR MANINDER Administration Glucagon 1 mg 06/02/25 17:31 Glucagon For Inj 1 Mg Vial IM PRN PRN Hypoglycemia Protocol Glucose 15 gm 06/02/25 17:31 Glucose Oral Gel 15 Gm Of Glucse In 37.5 Gm Tube PO PRN PRN Hypoglycemia Protocol Cefazolin Sodium 1 gm/ Sodium 50 mls @ 100 mls/hr 06/02/25 22:00 06/03/25 13:07 Chloride IVPB 100 mls/hr Q8H MANINDER Administration Dextrose 1,000 mls @ 100 mls/hr 06/02/25 17:31 Dextrose 5% 1,000 Ml IVPB PRN PRN Hypoglycemia Protocol Sodium Chloride 250 mls @ 30 mls/hr 06/03/25 06:31 06/03/25 07:29 Normal Saline Iv IV CONT 06/03/25 14:50 Infused .Q8H20M STA Infusion Sodium Chloride 250 mls @ 30 mls/hr 06/03/25 09:17 06/03/25 12:12 Normal Saline Iv IV CONT 06/03/25 17:36 30 mls/hr .Q8H20M STA Administration Insulin Aspart 2 - 5 units 06/02/25 18:00 06/03/25 12:28 Insulin Aspart (*Bkc) 100 Units/Ml SUB-Q Not Given Q6HR [facility] Protocol Morphine Sulfate 2 mg 06/02/25 13:41 Morphine Sulfate (*Crx) 4 Mg/Ml Inj IV PUSH Q2H PRN Pain Rated 7-10 Multivitamins Therapeutic 1 tablet 06/03/25 09:25 06/03/25 09:40 Multivitamins Therapeutic Tab (*Bkc) PO 1 tablet QAM MANINDER Administration Ondansetron HCl 4 mg 06/02/25 13:41 Ondansetron Inj 4 Mg/2 Ml Vial IV PUSH Q4H PRN Nausea Pantoprazole Sodium 40 mg 06/02/25 21:00 06/03/25 09:40 Pantoprazole Sodium Iv 40 Mg Vial IV PUSH 40 mg Q12HR MANINDER Administration Potassium Chloride 20 meq 06/03/25 09:00 06/03/25 09:40 Potassium Chloride 20 Meq Er Tablet PO 20 meq DAILY MANINDER Administration Primidone 50 mg 06/02/25 21:00 06/03/25 09:40 Primidone 50 Mg Tablet PO 50 mg Q12HR MANINDER Administration Thiamine HCl 100 mg 06/03/25 09:25 06/03/25 09:40 Thiamine Hcl 100 Mg Tablet PO 100 mg QAM MANINDER Administration Radiology Results: ITS Impressions Venous Doppler Study 06/02/25 11:57 IMPRESSION: 1. No DVT either leg. Chest/Abdomen/Pelvis CTA 06/02/25 12:37 IMPRESSION: CHEST- 1. No acute cardiopulmonary findings. ABDOMEN/PELVIS- 1. Distal esophagitis. High density intraluminal material at GE junction - non cleared ingested contents versus active bleed. 2. Nonspecific gallbladder wall thickening. If indicated can consider right upper quadrant ultrasound and/or HIDA scan. 3. Additional findings as above. Labs Labs: Laboratory Results - last 24 hr 06/02/25 06/02/25 06/02/25 10:30 18:07 20:07 WBC RBC Hgb 7.0 L Hct 23.6 L MCV MCH MCHC RDW Plt Count MPV Immature Gran % (Auto) Neut % (Auto) Lymph % (Auto) Wilson % (Auto) Eos % (Auto) Baso % (Auto) Lymph # (Auto) Wilson # (Auto) Eos # (Auto) Baso # (Auto) Abs Immat Gran (auto) Absolute Neuts (auto) Absolute Nucleated RBC Band Neutrophils % Nucleated RBC % Platelet Estimate Polychromasia Hypochromasia Anisocytosis Target Cells Ovalocytes Cypress Cells Schistocytes Sodium Potassium Chloride Carbon Dioxide Anion Gap BUN Creatinine Estim Creat Clear Calc Estimated GFR Glucose POC Capillary Glucose 85 Calcium Magnesium Blood Type O Positive Antibody Screen Negative Crossmatch See Detail 06/02/25 06/03/25 06/03/25 23:03 05:38 06:03 WBC 4.2 L RBC 3.04 L Hgb 6.8 L* Hct 23.4 L MCV 77.0 L MCH 22.4 L MCHC 29.1 L RDW 19.5 H Plt Count 183 MPV 9.2 Immature Gran % (Auto) 0.2 Neut % (Auto) 50.4 Lymph % (Auto) 31.9 Wilson % (Auto) 14.2 H Eos % (Auto) 1.9 Baso % (Auto) 1.4 H Lymph # (Auto) 1.35 Wilson # (Auto) 0.6 Eos # (Auto) 0.1 Baso # (Auto) 0.1 Abs Immat Gran (auto) 0.01 Absolute Neuts (auto) 2.1 Absolute Nucleated RBC 0.000 Band Neutrophils % Not Reportable Nucleated RBC % 0.0 Platelet Estimate Adequate Polychromasia Occasional Hypochromasia 2+ Anisocytosis 1+ Target Cells Occasional Ovalocytes Occasional Cypress Cells 1+ Schistocytes None seen Sodium 136 L Potassium 3.5 Chloride 110 H Carbon Dioxide 23 Anion Gap 3 L BUN 8 L Creatinine 0.70 Estim Creat Clear Calc 96 Estimated GFR > 60 Glucose 115 H POC Capillary Glucose 175 H 120 H Calcium 7.7 L Magnesium 1.9 Blood Type Antibody Screen Crossmatch 06/03/25 06/03/25 06/03/25 08:20 11:32 11:38 WBC RBC Hgb 8.0 L Hct 26.5 L MCV MCH MCHC RDW Plt Count MPV Immature Gran % (Auto) Neut % (Auto) Lymph % (Auto) Wilson % (Auto) Eos % (Auto) Baso % (Auto) Lymph # (Auto) Wilson # (Auto) Eos # (Auto) Baso # (Auto) Abs Immat Gran (auto) Absolute Neuts (auto) Absolute Nucleated RBC Band Neutrophils % Nucleated RBC % Platelet Estimate Polychromasia Hypochromasia Anisocytosis Target Cells Ovalocytes Cypress Cells Schistocytes Sodium Potassium Chloride Carbon Dioxide Anion Gap BUN Creatinine Estim Creat Clear Calc Estimated GFR Glucose POC Capillary Glucose 116 H 175 H Calcium Magnesium Blood Type Antibody Screen Crossmatch Attestation: I personally reviewed all lab results Imaging Attestation: I personally reviewed this imaging study Quality VTE Prophylaxis VTE prophylaxis: mechanical ordered -Patient's previous records reviewed on admission -ER notes reviewed in detail on admission -discussed all findings and current treatment plan with patient/Family/POA -Consultations reviewed for recommendations -Patient's disposition for safe discharge discussed with director of casework department -radiology imaging, EKG and test results I have personally reviewed and interpreted unless otherwise specified Dictation performed by [employer] direct speech recognition software, therefore maths tutor variants and typographical errors may occur. Hospitalist MIPS Advance Care Plan I have confirmed that the patient's Advanced Care Plan is present, code status is documented, or surrogate decision maker is listed in patient medical record.: Yes Medication Reconciliation I have utilized all available resources to obtain, update and review the patients current medications (includes all prescriptions, OTC, herbals, cannab is, and nutritional supplements).: Yes The patient is not eligible for med reconciliation; the patient is in a emergent medical situation where delaying treatment would jeopardize the patients health.: No
[2025-06-04] VITALS (8 sets, daily range): BP systolic 100–138; BP diastolic 67–70; PULSE 68–97; RESP 12–18; TEMP 36.3–36.8; O2SAT 96–100
[2025-06-04] MEDS: chlordiazePOXIDE (*CRX) 25 MG CAPSULE 50 MG PO ×2 (00:09→05:37)
[2025-06-04] MEDS: GABAPENTIN 300 MG CAPSULE 600 MG PO ×3 (05:37→22:04)
[2025-06-04] MEDS: ceFAZolin 1 GM in SODIUM CHLORIDE 0.9% IV 50 ML 100 ML IVPB ×3 (05:38→22:04)
[2025-06-04 06:34] LABS: Hematocrit 30.6 % (42.0-52.0); Hemoglobin 9.2 g/dL (14.0-18.0); Mean Corpuscular HGB Conc 30.1 g/dl (32-36); Mean Corpuscular Hemoglobin 23.7 pg (26-34); Mean Corpuscular Volume 78.9 fl (80-100); Platelet Count Result 195 k/mm3 (150-375); Red Blood Count 3.88 M/mm3 (4.6-6.20); White Blood Count 5.2 K/mm3 (4.5-10.0)
[2025-06-04 06:58] LABS: Alanine Aminotransferase 18 U/L (6-50); Albumin Level 3.4 g/dL (3.5-5.1); Alkaline Phosphatase 159 U/L (38-126); Anion Gap 7 mmol/L (4-12); Aspartate Amino Transferase 37 U/L (17-59); Bilirubin,Total 1.0 mg/dL (0.2-1.3); Blood Urea Nitrogen 9 mg/dL (9-20); Calcium 8.0 mg/dL (8.4-10.2); Carbon Dioxide 22 mmol/L (22-30); Chloride 106 mmol/L (98-107); Estimated CRCL calculation 79 ml/min; Estimated Glomerular Filt Rate > 60; Glucose 130 mg/dL (65-110); Magnesium 1.7 mg/dL (1.6-2.3); Potassium 3.6 mmol/L (3.4-5.0); Sodium 135 mmol/L (137-145); Total Protein 8.1 g/dL (6.3-8.2)
[2025-06-04] MEDS: POTASSIUM CHLORIDE 20 MEQ ER TABLET PO (08:50)
[2025-06-04] MEDS: EZETIMIBE 10 MG TABLET PO (08:50)
[2025-06-04] MEDS: PRIMIDONE 50 MG TABLET PO ×2 (08:50→22:05)
[2025-06-04] MEDS: MULTIVITAMINS THERAPEUTIC TAB (*BKC) 1 TABLET PO (08:50)
[2025-06-04] MEDS: FOLIC ACID 1 MG TABLET PO (08:50)
[2025-06-04] MEDS: THIAMINE HCL 100 MG TABLET PO (08:51)
[2025-06-04] MEDS: FUROSEMIDE 40 MG TABLET PO ×2 (08:51→17:09)
[2025-06-04] MEDS: PANTOPRAZOLE SODIUM IV 40 MG VIAL IV PUSH ×2 (08:51→22:05)
--- NOTE | 2025-06-04 11:30 | P.PNIM_ITS ---
Assessment and Plan Assessment and Plan (1) Acute blood loss anemia: Code(s): D62 - Acute posthemorrhagic anemia Status: Acute Assessment and Plan: Patient with 3 week history of shortness of breath, fatigue, and dark stool. [facility]up [facility] revealed significant anemia. Patient directed to the ED where hemoglobin was found to be 6.0. Patient reports being on 81 mg aspirin daily, however not on his med rec. Chest abdomen pelvis CTA reads distal esophagitis. High density intraluminal material at GE junction - non cleared ingested contents versus active bleed. Nonspecific gallbladder wall thickening. guaiac-positive stool * GI consulted * EGD on 06/03 showed gastritis * trend H&H q6hr * Hgb dropped to 6.8 after transfusion gave another unit PRBC total 4 Units * PPI BID * Plan for colonoscopy 06/05/2025 * NPO at midnight * Bowel prep 06/04/2025 (2) Cellulitis of left lower extremity: Code(s): L03.116 - Cellulitis of left lower limb Status: Acute Assessment and Plan: Erythema and warmth to LLE patient with HX PVD suppose to be following with vascular at [facility] * cefazolin 1 g q.8 hours started on 06/02 * Venous dopplers negative (3) ETOH abuse: Code(s): F10.10 - Alcohol abuse, uncomplicated Status: Chronic Assessment and Plan: daily ETOH use: two 24oz beers daily last drink: Last night * Thiamine, folic acid, and multi-vitamin * PPI BID * librium Q6hr PRN * Diazepam PRN for seizure activity * CIWA * Monitor and replenish electrolytes as needed * Seizure precautions if indicated (4) Diabetes mellitus: Qualifiers: Diabetes mellitus complication detail: with other circulatory complications Diabetes mellitus complication status: with circulatory complication Diabetes mellitus intermediate accountant insulin use: with intermediate accountant use Diabetes mellitus type: type 2 Qualified Code(s): E11.59 - Type 2 diabetes mellitus with other circulatory complications; 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 Code(s): E11.9 - Type 2 diabetes mellitus without complications Status: Chronic Assessment and Plan: * hypoglycemia protocol * POC blood glucose ACHS * low Dose SSI * home medication: Glimepiride, Tresiba, lispro, metformin held * Diabetic diet (5) Drug abuse and dependence: Code(s): F19.20 - Other psychoactive substance dependence, uncomplicated Status: Acute Assessment and Plan: Patient reports methamphetamine use 1 day prior to arrival * Monitor for withdrawal symptoms * Encouraged immediate cessation Plan Code status: Full code per patient DVT prophylaxis: SCD's Stress ulcer prophylaxis: Protonix 40 BID PT/OT notes: Ambulatory Disposition: Patient continues admission to the medical unit for further evaluation and treatment acute blood loss anemia possibly secondary to GI bleed patient underwent an EGD today plans for colonoscopy on 06/05/2025. Medical Record Review I have reviewed the following patient records and this information was taken into consideration when formulating the assessment and plan.: previous labs, previous ER visits and previous hospitalizations Consultations Consultations: I have discussed the care of this pt with the consulting providers. Time Spent With Patient Time with patient: 15 - 25 minutes Subjective Date/time seen: 06/04/25 11:30 Interval history: Patient is a 70-year-old male admitted for further evaluation and treatment anemia with acute blood loss secondary to possible GI bleed. 06/04/2025: Patient resting comfortably sleeping a lot today but arousable and answering all questions appropriate. Hgb stable today. Patient with no complaints at this time, colonoscopy in the am. Review of Systems Review of Systems: All systems reviewed & are unremarkable except as noted in HPI and below Exam Const: General: comfortable and no acute distress HENMT: Mouth: Yes moist mucous membranes Eyes: General: appearance normal, both eyes and all related structures Neck: Neck: supple Resp: Effort & Inspection: normal respiratory effort Auscultation: clear to auscultation bilaterally Cardio: Rate: regular rate Rhythm: regular rhythm GI: Auscultation: normal bowel sounds Skin: General skin exam: normal color, no rashes or lesions noted and erythema (Left lower extremity) Wounds: no wounds Neuro: General: gait normal Speech: normal speech Motor exam (neuro): 5/5 motor strength present throughout Sensory Exam: normal sensation Extrem: Other: Left lower extremity with erythema and edema warm to touch Psych: Appearance: disheveled Mental Status: mental status grossly normal Speech and movement: Normal speech and movement present and Clear speech present Attitude: cooperative Insight: Poor insight present (Psych) Judgement: Poor judgement present (Psych) Objective Data Vital Signs Vital Signs: Vital Signs - 24 hr 06/03/25 12:00 06/03/25 12:08 06/03/25 12:24 Temperature 98.2 F 97.9 F Pulse Rate 65 69 77 Respiratory Rate 16 18 Blood Pressure 128/87 127/68 Pulse Oximetry 98 99 06/03/25 13:24 06/03/25 14:24 06/03/25 15:27 Temperature 97.7 F 98.1 F 98.2 F Pulse Rate 64 66 80 Respiratory Rate 16 16 18 Blood Pressure 112/60 115/65 120/66 Pulse Oximetry 100 99 100 06/03/25 16:00 12/06/25 20:00 06/03/25 22:00 Temperature 98.1 F Pulse Rate 72 69 81 Respiratory Rate 18 Blood Pressure 110/69 Pulse Oximetry 98 06/04/25 00:00 06/04/25 04:00 06/04/25 06:00 Temperature 97.9 F Pulse Rate 74 73 77 Respiratory Rate 18 Blood Pressure 119/67 Pulse Oximetry 99 Intake/Output Intake/Output: Intake & Output 06/01/25 06/02/25 06/03/25 06/04/25 23:59 23:59 23:59 23:59 Intake Total 1090 3320 170 Output Total 200 2700 Balance 890 620 170 Meds/Results Medications: Active Medications Generic Name Dose Route Start Last Admin Trade Name Freq PRN Reason Stop Dose Admin Acetaminophen 650 mg 06/02/25 13:41 Acetaminophen 325 Mg Tablet PO Q4H PRN Mild Pain (1-3) or Fever Chlordiazepoxide HCl 50 mg 06/02/25 18:00 06/04/25 05:37 Chlordiazepoxide (*Crx) 25 Mg Capsule PO 50 mg Q6HR MANINDER Administration Dextrose 12.5 gm 06/02/25 17:31 Dextrose 50% 25 Gm/50 Ml Syringe IV PUSH PRN PRN Hypoglycemia Protocol Diazepam 5 mg 06/02/25 17:54 Diazepam Inj (*Crx) 10 Mg/2 Ml Syringe IV PUSH Q2H PRN Alcohol Withdrawal Ezetimibe 10 mg 06/03/25 09:00 06/04/25 08:50 Ezetimibe 10 Mg Tablet PO 10 mg DAILY MANINDER Administration Folic Acid 1 mg 06/03/25 09:25 06/04/25 08:50 Folic Acid 1 Mg Tablet PO 1 mg DAILY MANINDER Administration Furosemide 40 mg 06/03/25 09:00 06/04/25 08:51 Furosemide 40 Mg Tablet PO 40 mg BID MANINDER Administration Gabapentin 600 mg 06/02/25 22:00 06/04/25 05:37 Gabapentin 300 Mg Capsule PO 600 mg Q8HR MANINDER Administration Glucagon 1 mg 06/02/25 17:31 Glucagon For Inj 1 Mg Vial IM PRN PRN Hypoglycemia Protocol Glucose 15 gm 06/02/25 17:31 Glucose Oral Gel 15 Gm Of Glucse In 37.5 Gm Tube PO PRN PRN Hypoglycemia Protocol Cefazolin Sodium 1 gm/ Sodium 50 mls @ 100 mls/hr 06/02/25 22:00 06/04/25 06:08 Chloride IVPB Infused Q8H MANINDER Infusion Dextrose 1,000 mls @ 100 mls/hr 06/02/25 17:31 Dextrose 5% 1,000 Ml IVPB PRN PRN Hypoglycemia Protocol Insulin Aspart 2 - 5 units 06/02/25 18:00 06/04/25 06:58 Insulin Aspart (*Bkc) 100 Units/Ml SUB-Q Not Given Q6HR MANINDER Protocol Morphine Sulfate 2 mg 06/02/25 13:41 Morphine Sulfate (*Crx) 4 Mg/Ml Inj IV PUSH Q2H PRN Pain Rated 7-10 Multivitamins Therapeutic 1 tablet 06/03/25 09:25 06/04/25 08:50 Multivitamins Therapeutic Tab (*Bkc) PO 1 tablet QAM MANINDER Administration Ondansetron HCl 4 mg 06/02/25 13:41 Ondansetron Inj 4 Mg/2 Ml Vial IV PUSH Q4H PRN Nausea Pantoprazole Sodium 40 mg 06/02/25 21:00 06/04/25 08:51 Pantoprazole Sodium Iv 40 Mg Vial IV PUSH 40 mg Q12HR MANIDNER Administration Potassium Chloride 20 meq 06/03/25 09:00 06/04/25 08:50 Potassium Chloride 20 Meq Er Tablet PO 20 meq DAILY MANINDER Administration Primidone 50 mg 06/02/25 21:00 06/04/25 08:50 Primidone 50 Mg Tablet PO 50 mg Q12HR MANINDER Administration Thiamine HCl 100 mg 06/03/25 09:25 06/04/25 08:51 Thiamine Hcl 100 Mg Tablet PO 100 mg QAM MANINDER Administration Radiology Results: ITS Impressions Venous Doppler Study 06/02/25 11:57 IMPRESSION: 1. No DVT either leg. Chest/Abdomen/Pelvis CTA 06/02/25 12:37 IMPRESSION: CHEST- 1. No acute cardiopulmonary findings. ABDOMEN/PELVIS- 1. Distal esophagitis. High density intraluminal material at GE junction - non cleared ingested contents versus active bleed. 2. Nonspecific gallbladder wall thickening. If indicated can consider right upper quadrant ultrasound and/or HIDA scan. 3. Additional findings as above. Labs Labs: Laboratory Results - last 24 hr 06/02/25 06/03/25 06/03/25 10:30 11:32 11:38 WBC RBC Hgb 8.0 L Hct 26.5 L MCV MCH MCHC RDW Plt Count MPV Sodium Potassium Chloride Carbon Dioxide Anion Gap BUN Creatinine Estim Creat Clear Calc Estimated GFR Glucose POC Capillary Glucose 175 H Calcium Magnesium Total Bilirubin AST ALT Alkaline Phosphatase Total Protein Albumin Blood Type O Positive Antibody Screen Negative Crossmatch See Detail 06/03/25 06/04/25 06/04/25 16:52 00:02 06:07 WBC 5.2 RBC 3.88 L Hgb 9.2 L Hct 30.6 L MCV 78.9 L MCH 23.7 L D MCHC 30.1 L RDW 19.9 H Plt Count 195 MPV 9.2 Sodium 135 L Potassium 3.6 Chloride 106 Carbon Dioxide 22 Anion Gap 7 BUN 9 Creatinine 0.86 Estim Creat Clear Calc 79 Estimated GFR > 60 Glucose 130 H POC Capillary Glucose 183 H 120 H Calcium 8.0 L Magnesium 1.7 Total Bilirubin 1.0 AST 37 ALT 18 Alkaline Phosphatase 159 H Total Protein 8.1 Albumin 3.4 L Blood Type Antibody Screen Crossmatch 06/04/25 06:09 WBC RBC Hgb Hct MCV MCH MCHC RDW Plt Count MPV Sodium Potassium Chloride Carbon Dioxide Anion Gap BUN Creatinine Estim Creat Clear Calc Estimated GFR Glucose POC Capillary Glucose 113 H Calcium Magnesium Total Bilirubin AST ALT Alkaline Phosphatase Total Protein Albumin Blood Type Antibody Screen Crossmatch Attestation: I personally reviewed all lab results Quality VTE Prophylaxis VTE prophylaxis: mechanical ordered -Patient's previous records reviewed on admission -ER notes reviewed in detail on admission -discussed all findings and current treatment plan with patient/Family/POA -Consultations reviewed for recommendations -Patient's disposition for safe discharge discussed with test case developer -radiology imaging, EKG and test results I have personally reviewed and interpreted unless otherwise specified Dictation performed by [employer] direct speech recognition software, therefore wire mill rover variants and typographical errors may occur. Hospitalist MIPS Advance Care Plan I have confirmed that the patient's Advanced Care Plan is present, code status is documented, or surrogate decision maker is listed in patient medical record.: Yes Medication Reconciliation I have utilized all available resources to obtain, update and review the patients current medications (includes all prescriptions, OTC, herbals, cannabis, and nutritional supplements).: Yes The patient is not eligible for med reconciliation; the patient is in a emergent medical situation where delaying treatment would jeopardize the patients health.: No
--- NOTE | 2025-06-04 14:30 | WPDGIPROGNO ---
Progress Note: A&P Assessment and Plan (1) GIB (gastrointestinal bleeding): Code(s): K92.2 - Gastrointestinal hemorrhage, unspecified Status: Acute Assessment and Plan: egd yesterday colonoscopy tomorrow to assess for source of anemia (2) Melena: Code(s): K92.1 - Melena Status: Acute Assessment and Plan: egd no active bleeding ppi because gastritis (3) ETOH abuse: Code(s): F10.10 - Alcohol abuse, uncomplicated Status: Chronic Assessment and Plan: ciwa protocol, thiamine (4) Drug abuse and dependence: Code(s): F19.20 - Other psychoactive substance dependence, uncomplicated Status: Acute (5) Diabetes mellitus: Qualifiers: Diabetes mellitus type: type 2 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: with assisted use Diabetes mellitus complication status: with circulatory complication Diabetes mellitus complication detail: with other circulatory complications Qualified Code(s): E11.59 - Type 2 diabetes mellitus with other circulatory complications; 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 Code(s): E11.9 - Type 2 diabetes mellitus without complications Status: Chronic (6) Acute blood loss anemia: Code(s): D62 - Acute posthemorrhagic anemia Status: Acute Assessment and Plan: s/p blood transfusion monitor h/h (7) Cellulitis of left lower extremity: Code(s): L03.116 - Cellulitis of left lower limb Status: Acute Subjective Date/time seen: 06/04/25 14:30 Interval history: egd no active bleeding, some gastritis denies recent gib, he is comfortable in bed Review of Systems Review of Systems: All systems reviewed & are unremarkable except as noted in HPI and below Exam Const: General: comfortable and no acute distress HENMT: Mouth: Yes moist mucous membranes Eyes: General: appearance normal, both eyes and all related structures Neck: Neck: supple Resp: Effort & Inspection: normal respiratory effort Auscultation: clear to auscultation bilaterally Cardio: Rate: regular rate Rhythm: regular rhythm GI: Auscultation: normal bowel sounds Skin: General skin exam: normal color and erythema (Left lower extremity) Neuro: Speech: normal speech Motor exam (neuro): 5/5 motor strength present throughout Extrem: Other: Left lower extremity with erythema and edema warm to touch Psych: Appearance: disheveled Mental Status: mental status grossly normal Speech and movement: Normal speech and movement present and Clear speech present Attitude: cooperative Insight: Poor insight present (Psych) Judgement: Poor judgement present (Psych) Objective Data Vital Signs Vital Signs: Vital Signs - 24 hr 06/03/25 15:27 06/03/25 16:00 06/03/25 20:00 Temperature 98.2 F Pulse Rate 80 72 69 Respiratory Rate 18 Blood Pressure 120/66 Pulse Oximetry 100 06/03/25 22:00 06/04/25 00:00 06/04/25 04:00 Temperature 98.1 F Pulse Rate 81 74 73 Respiratory Rate 18 Blood Pressure 110/69 Pulse Oximetry 98 06/04/25 06:00 Temperature 97.9 F Pulse Rate 77 Respiratory Rate 18 Blood Pressure 119/67 Pulse Oximetry 99 Intake/Output Intake/Output: Intake & Output 06/01/25 06/02/25 06/03/25 06/04/25 23:59 23:59 23:59 23:59 Intake Total 1090 3320 170 Output Total 200 2700 Balance 890 620 170 Meds/Results Medications: Active Medications Generic Name Dose Route Start Last Admin Trade Name Freq PRN Reason Stop Dose Admin Acetaminophen 650 mg 06/02/25 13:41 Acetaminophen 325 Mg Tablet PO Q4H PRN Mild Pain (1-3) or Fever Bisacodyl 20 mg 06/04/25 17:00 Bisacodyl 5 Mg Tablet Ec PO 06/04/25 17:01 ONCE ONE Chlordiazepoxide HCl 50 mg 06/02/25 18:00 06/04/25 13:21 Chlordiazepoxide (*Crx) 25 Mg Capsule PO Not Given Q6HR MANINDER Dextrose 12.5 gm 06/02/25 17:31 Dextrose 50% 25 Gm/50 Ml Syringe IV PUSH PRN PRN Hypoglycemia Protocol Diazepam 5 mg 06/02/25 17:54 Diazepam Inj (*Crx) 10 Mg/2 Ml Syringe IV PUSH Q2H PRN Alcohol Withdrawal Ezetimibe 10 mg 06/03/25 09:00 06/04/25 08:50 Ezetimibe 10 Mg Tablet PO 10 mg DAILY MANINDER Administration Folic Acid 1 mg 06/03/25 09:25 06/04/25 08:50 Folic Acid 1 Mg Tablet PO 1 mg DAILY MANINDER Administration Furosemide 40 mg 06/03/25 09:00 06/04/25 08:51 Furosemide 40 Mg Tablet PO 40 mg BID MANINDER Administration Gabapentin 600 mg 06/02/25 22:00 06/04/25 13:33 Gabapentin 300 Mg Capsule PO 600 mg Q8HR MANINDER Administration Glucagon 1 mg 06/02/25 17:31 Glucagon For Inj 1 Mg Vial IM PRN PRN Hypoglycemia Protocol Glucose 15 gm 06/02/25 17:31 Glucose Oral Gel 15 Gm Of Glucse In 37.5 Gm Tube PO PRN PRN Hypoglycemia Protocol Cefazolin Sodium 1 gm/ Sodium 50 mls @ 100 mls/hr 06/02/25 22:00 06/04/25 13:34 Chloride IVPB 100 mls/hr Q8H MANINDER Administration Dextrose 1,000 mls @ 100 mls/hr 06/02/25 17:31 Dextrose 5% 1,000 Ml IVPB PRN PRN Hypoglycemia Protocol Insulin Aspart 2 - 5 units 06/02/25 18:00 06/04/25 11:53 Insulin Aspart (*Bkc) 100 Units/Ml SUB-Q Not Given Q6HR MANINDER Protocol Magnesium Citrate 300 ml 06/05/25 01:00 Magnesium Citrate 300 Ml Btl PO 06/05/25 01:01 ONCE ONE Morphine Sulfate 2 mg 06/02/25 13:41 Morphine Sulfate (*Crx) 4 Mg/Ml Inj IV PUSH Q2H PRN Pain Rated 7-10 Multivitamins Therapeutic 1 tablet 06/03/25 09:25 06/04/25 08:50 Multivitamins Therapeutic Tab (*Bkc) PO 1 tablet QAM MANINDER Administration Ondansetron HCl 4 mg 06/02/25 13:41 Ondansetron Inj 4 Mg/2 Ml Vial IV PUSH Q4H PRN Nausea Pantoprazole Sodium 40 mg 06/02/25 21:00 06/04/25 08:51 Pantoprazole Sodium Iv 40 Mg Vial IV PUSH 40 mg Q12HR MANINDER Administration Polyethylene Glycol 238 gm 06/04/25 17:00 Polyethylene Glycol 3350 238 Gm Bottle PO 06/04/25 17:01 ONCE ONE Potassium Chloride 20 meq 06/03/25 09:00 06/04/25 08:50 Potassium Chloride 20 Meq Er Tablet PO 20 meq DAILY MANINDER Administration Primidone 50 mg 06/02/25 21:00 06/04/25 08:50 Primidone 50 Mg Tablet PO 50 mg Q12HR MANINDER Administration Thiamine HCl 100 mg 06/03/25 09:25 06/04/25 08:51 Thiamine Hcl 100 Mg Tablet PO 100 mg QAM MANINDER Administration Radiology Results: ITS Impressions Venous Doppler Study 06/02/25 11:57 IMPRESSION: 1. No DVT either leg. Chest/Abdomen/Pelvis CTA 06/02/25 12:37 IMPRESSION: CHEST- 1. No acute cardiopulmonary findings. ABDOMEN/PELVIS- 1. Distal esophagitis. High density intraluminal material at GE junction - non cleared ingested contents versus active bleed. 2. Nonspecific gallbladder wall thickening. If indicated can consider right upper quadrant ultrasound and/or HIDA scan. 3. Additional findings as above. Labs Labs: Laboratory Results - last 24 hr 06/02/25 06/03/25 06/04/25 10:30 16:52 00:02 WBC RBC Hgb Hct MCV MCH MCHC RDW Plt Count MPV Sodium Potassium Chloride Carbon Dioxide Anion Gap BUN Creatinine Estim Creat Clear Calc Estimated GFR Glucose POC Capillary Glucose 183 H 120 H Calcium Magnesium Total Bilirubin AST ALT Alkaline Phosphatase Total Protein Albumin Crossmatch See Detail 06/04/25 06/04/25 06/04/25 06:07 06:09 11:53 WBC 5.2 RBC 3.88 L Hgb 9.2 L Hct 30.6 L MCV 78.9 L MCH 23.7 L D MCHC 30.1 L RDW 19.9 H Plt Count 195 MPV 9.2 Sodium 135 L Potassium 3.6 Chloride 106 Carbon Dioxide 22 Anion Gap 7 BUN 9 Creatinine 0.86 Estim Creat Clear Calc 79 Estimated GFR > 60 Glucose 130 H POC Capillary Glucose 113 H 167 H Calcium 8.0 L Magnesium 1.7 Total Bilirubin 1.0 AST 37 ALT 18 Alkaline Phosphatase 159 H Total Protein 8.1 Albumin 3.4 L Crossmatch
[2025-06-04] MEDS: BISACODYL 5 MG TABLET EC 20 MG PO (17:09)
[2025-06-05] VITALS (10 sets, daily range): BP systolic 100–117; BP diastolic 60–72; PULSE 70–84; RESP 16–18; TEMP 36.5–36.8; O2SAT 97–100
[2025-06-05] MEDS: MAGNESIUM CITRATE 300 ML BTL PO ×2 (01:04→08:17)
[2025-06-05 06:15] LABS: Hematocrit 31.5 % (42.0-52.0); Hemoglobin 9.4 g/dL (14.0-18.0); Mean Corpuscular HGB Conc 29.8 g/dl (32-36); Mean Corpuscular Hemoglobin 23.7 pg (26-34); Mean Corpuscular Volume 79.5 fl (80-100); Platelet Count Result 212 k/mm3 (150-375); Red Blood Count 3.96 M/mm3 (4.6-6.20); White Blood Count 6.0 K/mm3 (4.5-10.0)
[2025-06-05] MEDS: ceFAZolin 1 GM in SODIUM CHLORIDE 0.9% IV 50 ML 100 ML IVPB ×2 (06:21→13:00)
[2025-06-05 07:26] LABS: Alanine Aminotransferase 19 U/L (6-50); Albumin Level 3.3 g/dL (3.5-5.1); Alkaline Phosphatase 144 U/L (38-126); Anion Gap 5 mmol/L (4-12); Aspartate Amino Transferase 32 U/L (17-59); Bilirubin,Total 0.7 mg/dL (0.2-1.3); Blood Urea Nitrogen 8 mg/dL (9-20); Calcium 8.0 mg/dL (8.4-10.2); Carbon Dioxide 22 mmol/L (22-30); Chloride 108 mmol/L (98-107); Estimated CRCL calculation 91 ml/min; Estimated Glomerular Filt Rate > 60; Glucose 126 mg/dL (65-110); Magnesium 2.0 mg/dL (1.6-2.3); Potassium 3.7 mmol/L (3.4-5.0); Sodium 135 mmol/L (137-145); Total Protein 8.0 g/dL (6.3-8.2)
[2025-06-05] MEDS: PANTOPRAZOLE SODIUM IV 40 MG VIAL IV PUSH (08:17)
--- NOTE | 2025-06-05 09:42 | WPDANESEPPF ---
Anes - Initial Pre Proc Eval Procedure: Operation Date: 06/05/25 15:00 Proposed Procedures p Diagnostic Colonoscopy - Nhan Parsons MD Date/Time: 06/05/25 09:42 Surgeon: Ac shirley Oca, MD Pre Op Diagnosis: UGIB, Anemia, Cellulitis LLE Patient Data Age: 70 Gender: M Height: 1.78 m Weight: 96.2 kg Last Vital Signs Temp 36.8 C 06/05/25 06:00 Pulse 84 06/05/25 06:00 Resp 18 06/05/25 06:00 BP 117/67 06/05/25 06:00 Pulse Ox 98 06/05/25 06:00 O2 Del Method Room Air 06/04/25 22:00 Allergies Allergy/AdvReac Type Severity Reaction Status Date / Time [id number] Reductase AdvReac Mild Cramping Verified 06/03/25 07:44 Inhibitor of the Muscles Home Medications ?Medication ?Instructions ?Recorded ?Confirmed ?Type blood-glucose sensor (FreeStyle 06/02/25 06/02/25 History Clemente 3 Sensor device) ezetimibe 10 mg tablet 10 mg PO DAILY 06/02/25 06/02/25 History furosemide 40 mg tablet 40 mg PO BID 06/02/25 06/02/25 History gabapentin 600 mg tablet 600 mg PO TID 06/02/25 06/02/25 History glimepiride 2 mg tablet 2 mg PO DAILY 06/02/25 06/02/25 History insulin degludec 100 unit/mL (3 See Rx Instructions subcut .COMPLEX 06/02/25 06/02/25 History mL) subcutaneous pen (Tresiba FlexTouch U-100 insulin) insulin lispro 100 unit/mL See Rx Instructions subcut .COMPLEX 06/02/25 06/02/25 History subcutaneous pen metformin 1,000 mg tablet 1,000 mg PO BID 06/02/25 06/02/25 History potassium chloride 20 mEq 20 meq PO DAILY 06/02/25 06/02/25 History tablet,extended release primidone 50 mg tablet 50 mg PO BID 06/02/25 06/02/25 History tadalafil 20 mg tablet 20 mg PO PRN 06/02/25 06/02/25 History Laboratory Tests 06/04/25 06/04/25 06/05/25 11:53 17:01 00:05 WBC RBC Hgb Hct MCV MCH MCHC RDW Plt Count MPV Sodium Potassium Chloride Carbon Dioxide Anion Gap BUN Creatinine Estim Creat Clear Calc Estimated GFR Glucose POC Capillary Glucose 167 H mg/dl 125 H mg/dl 164 H mg/dl (65-105) (65-105) (65-105) Calcium Magnesium Total Bilirubin AST ALT Alkaline Phosphatase Total Protein Albumin 06/05/25 06/05/25 06/05/25 05:48 06:52 07:49 WBC 6.0 K/mm3 (4.5-10.0) RBC 3.96 L M/mm3 (4.6-6.20) Hgb 9.4 L g/dL (14.0-18.0) Hct 31.5 L % (42.0-52.0) MCV 79.5 L fl (80-100) MCH 23.7 L pg (26-34) MCHC 29.8 L g/dl (32-36) RDW 20.4 H % (11.5-14.5) Plt Count 212 k/mm3 (150-375) MPV 9.7 fl (7.4-10.4) Sodium 135 L mmol/L (137-145) Potassium 3.7 mmol/L (3.4-5.0) Chloride 108 H mmol/L (98-107) Carbon Dioxide 22 mmol/L (22-30) Anion Gap 5 mmol/L (4-12) BUN 8 L mg/dL (9-20) Creatinine 0.74 mg/dL (0.7-1.3) Estim Creat Clear Calc 91 ml/min Estimated GFR > 60 (59 - ) Glucose 126 H mg/dL (65-110) POC Capillary Glucose 128 H mg/dl 133 H mg/dl (65-105) (65-105) Calcium 8.0 L mg/dL (8.4-10.2) Magnesium 2.0 mg/dL (1.6-2.3) Total Bilirubin 0.7 mg/dL (0.2-1.3) AST 32 U/L (17-59) ALT 19 U/L (6-50) Alkaline Phosphatase 144 H U/L (38-126) Total Protein 8.0 g/dL (6.3-8.2) Albumin 3.3 L g/dL (3.5-5.1) Patient hx anesthesia problems: none Family hx anesthesia problems: none Results Review: All pre-operative results and documents have been reviewed as part of the pre-operative evaluation. [facility] Past Medical History Medical History Hypertension CHF (congestive heart failure) GIB (gastrointestinal bleeding) Drug abuse and dependence Acute blood loss anemia Melena Diabetes mellitus ETOH abuse Surgical History Surgical History (Updated 06/05/25 @ 09:43 by Beck Ness DO) Heart valve replaced Social History Social History Alcohol intake: current Drinks per week: 14 Substance use: current Substance use type: methamphetamine Last use: 06/01/25 Lack of Transportation: No Lack of Food: Never True Current Housing: I Have Housing Concerned About Future Housing: No Difficulty Paying Gas/Electric Bills: No Difficulty Paying for Meds: No Currently Unemployed: No Education: High School Diploma/GED Difficulty w/ Childcare or Family Care: No Spiritual care concerns: No Anes - Eval Final PreProcedure Day of Procedure 06/05/25 09:42 Patient weight: obese Heart: regular rate and rhythm Lungs: clear to auscultation Airway: Mallampati scale class II Neurological: alert and oriented Last oral intake: >/= 8 hours ASA classification: IV Emergent: no Anesthetic plan: proceed Anesthesia type and monitoring: general GIVS and standard monitoring Results Review: All pre-operative results and documents have been reviewed as part of the pre-operative evaluation. Informed Consent: The patient's anesthetic plan and its attendant risks and benefits were discussed with the patient/family/POA. Questions were solicited and answers provided to the satisfaction of the patient/family/POA.
[2025-06-05] MEDS: LACTATED RINGERS 1,000 ML 150 ML IV CONT (10:03)
--- NOTE | 2025-06-05 11:40 | P.DS_ITS ---
DS: Admitting Diagnosis Discharge Date 06/05/2025 Admitting Diagnosis anemia secondary to acute blood loss possible GI bleed, drug and alcohol abuse DS: Discharge Diagnosis Discharge Diagnosis (1) Acute blood loss anemia: Code(s): D62 - Acute posthemorrhagic anemia Status: Acute (2) Cellulitis of left lower extremity: Code(s): L03.116 - Cellulitis of left lower limb Status: Acute (3) ETOH abuse: Code(s): F10.10 - Alcohol abuse, uncomplicated Status: Chronic (4) Diabetes mellitus: Qualifiers: Diabetes mellitus complication detail: with other circulatory complications Diabetes mellitus complication status: with circulatory complication Diabetes mellitus group home insulin use: with 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 Diabetes mellitus type: type 2 Qualified Code(s): E11.59 - Type 2 diabetes mellitus with other circulatory complications; Z79.4 - skilled nursing (current) use of insulin Code(s): E11.9 - Type 2 diabetes mellitus without complications Status: Chronic (5) Drug abuse and dependence: Code(s): F19.20 - Other psychoactive substance dependence, uncomplicated Status: Acute DS: Summary Hospital Course Reason for hospitalization: anemia secondary to acute blood loss possible GI bleed, drug and alcohol abuse Hospital Course: Admission: 70-year-old male who past medical history of diabetes, ETOH abuse, methamphetamine abuse presents to the ED on 06/02/2025 with anemia. Patient has been feeling short of breath and fatigue for a few weeks and started having dark stool for about the same amount of time. Patient presented to his primary care provider on 06/01 and had labs drawn. PCPs office called the patient today did inform him that he needed to present to the ED due to a severely low hemoglobin of 6.2. Patient denies cough, fevers, chest pain. Denies abdominal pain and passing bright red blood. Patient has history of GI bleed with requirement of transfusion in the past. He is unsure what his last colonoscopy report was. Denies history of esophageal varices. Patient also states his left leg is chronically swollen in often times red. He denies significant pain to leg. Patient was supposed to have a stent to his left lower extremity at [facility] earlier this year but left AMA after becoming agitated with delays in the procedure. Patient endorses current alcohol abuse and methamphetamine abuse. Last meth and alcohol use was last night. In the ED: Initial vital signs 130/69, HR 101, respirations 23, afebrile and 100% on room air. Labs reveal significant anemia with hemoglobin 6.0 and hematocrit 21.5. Sodium 136, potassium 3.3, creatinine 0.69, glucose 156. Lactic acid 2.6-the corrected to 2.0. Alk-phos 161. Troponin negative. UA without sign of infection. UDS positive for barbiturates and amphetamines. EKG reveals sinus rhythm, ST-T wave abnormality. Bilateral venous Dopplers negative for DVT. Chest abdomen pelvis CTA reads distal esophagitis. High density intraluminal material at GE junction - non cleared ingested contents versus active bleed. Nonspecific gallbladder wall thickening. Hospital Course: patient was then admitted to the medical unit for further evaluation and treatment of anemia with acute blood loss secondary to GIB with consult to GI for further evaluation and treatment. Patient in total received 4 units of PRBCs but remained hemodynamically stable. Due to some concern of esophageal varices patient was taken to GI lab for an EGD which showed no active bleed with gastritis he was then continued on his Protonix twice a day and prepped for a colonoscopy. Patient underwent colonoscopy with no significant findings and no active bleed. Patient's hemoglobin remained stabilized and actually had an upward trend he had no further alcohol or methamphetamine withdrawals during his hospitalization and reported he would not need any discharge needs. Labs were unremarkable and hemoglobin stable no further evidence of active bleed. Patient was discharged home with education on immediate methamphetamine and alcohol cessation to reduce recurrence GI bleed. Status at Discharge Functional status at discharge: independent ambulation Overall status at discharge: patient is back to baseline Time Spent with Patient Time attestation: Total time spent providing and/or coordinating discharge services: Time spent: Greater than 30 minutes Exam Const: General: comfortable and no acute distress HENMT: Mouth: Yes moist mucous membranes Eyes: General: appearance normal, both eyes and all related structures Neck: Neck: supple Resp: Effort & Inspection: normal respiratory effort Auscultation: clear to auscultation bilaterally Cardio: Rate: regular rate Rhythm: regular rhythm GI: Auscultation: normal bowel sounds Skin: General skin exam: normal color, no rashes or lesions noted and erythema (Left lower extremity) Wounds: no wounds Neuro: General: gait normal Speech: normal speech Motor exam (neuro): 5/5 motor strength present throughout Sensory Exam: normal sensation Extrem: Other: Left lower extremity with erythema and edema warm to touch Psych: Appearance: disheveled Mental Status: mental status grossly normal Speech and movement: Normal speech and movement present and Clear speech present Attitude: cooperative Insight: Poor insight present (Psych) Judgement: Poor judgement present (Psych) DS: Data Data Completed and Pending Pending studies at discharge: Pending at discharge 06/03/25 07:57 Surgical [PTH] Routine Labs on day of discharge: Labs from last 24 hours 06/05/25 06/05/25 06/05/25 10:46 09:57 07:49 WBC RBC Hgb Hct MCV MCH MCHC RDW Plt Count MPV Sodium Potassium Chloride Carbon Dioxide Anion Gap BUN Creatinine Estim Creat Clear Calc Estimated GFR Glucose POC Capillary Glucose 117 H 132 H 133 H Calcium Magnesium Total Bilirubin AST ALT Alkaline Phosphatase Total Protein Albumin 06/05/25 06/05/25 06/05/25 06:52 05:48 00:05 WBC 6.0 RBC 3.96 L Hgb 9.4 L Hct 31.5 L MCV 79.5 L MCH 23.7 L MCHC 29.8 L RDW 20.4 H Plt Count 212 MPV 9.7 Sodium 135 L Potassium 3.7 Chloride 108 H Carbon Dioxide 22 Anion Gap 5 BUN 8 L Creatinine 0.74 Estim Creat Clear Calc 91 Estimated GFR > 60 Glucose 126 H POC Capillary Glucose 128 H 164 H Calcium 8.0 L Magnesium 2.0 Total Bilirubin 0.7 AST 32 ALT 19 Alkaline Phosphatase 144 H Total Protein 8.0 Albumin 3.3 L 06/04/25 06/04/25 17:01 11:53 WBC RBC Hgb Hct MCV MCH MCHC RDW Plt Count MPV Sodium Potassium Chloride Carbon Dioxide Anion Gap BUN Creatinine Estim Creat Clear Calc Estimated GFR Glucose POC Capillary Glucose 125 H 167 H Calcium Magnesium Total Bilirubin AST ALT Alkaline Phosphatase Total Protein Albumin Imaging Radiologist's impression: Radiology Results: ITS Impressions Venous Doppler Study 06/02/25 11:57 IMPRESSION: 1. No DVT either leg. Chest/Abdomen/Pelvis CTA 06/02/25 12:37 IMPRESSION: CHEST- 1. No acute cardiopulmonary findings. ABDOMEN/PELVIS- 1. Distal esophagitis. High density intraluminal material at GE junction - non cleared ingested contents versus active bleed. 2. Nonspecific gallbladder wall thickening. If indicated can consider right upper quadrant ultrasound and/or HIDA scan. 3. Additional findings as above. Discharge Plan Discharge Attending physician on discharge: Jackie Calero Consulting providers: Lidia Washburn; Nhan Parsons Discharging Clinician: Lidia Washburn Anticipated Discharge Date/Time: 06/05/25 11:42 Patient Disposition: Home Activity: as tolerated Diet: diabetic Discharge Instructions: 1) Anemia * continue PPI daily * recommend immediate cessation from methamphetamines and alcohol * follow up with primary care physician recommend follow up labs * your EGD and colonoscopy showed no active bleed 2) cellulitis lower extremity * I prescribed oral antibiotic therapy please take as indicated * follow up with your vascular surgeon at [facility] How can you care for yourself at home? ? Keep track of any new symptoms or changes in your symptoms. ? Rest until you feel better. ? Be safe with medicines. Take your medicines exactly as prescribed. Call your doctor if you think you are having a problem with your medicine. ? Do not drive after taking a prescription pain medicine. ? Ensure to follow-up with primary care physician as indicated and provide updated medication list provided to you at discharge. When should you call for help? Call 911 anytime you think you may need emergency care. For example, call if: ? You passed out (lost consciousness). Call your doctor now or seek immediate medical care if: ? You have new symptoms like fever, difficulty breathing, Chest pain, vomiting, or rash. ? You have new or different pain. ? You are confused and are having trouble thinking clearly. ? Your symptoms are getting worse. Watch closely for changes in your health, and be sure to contact your doctor if: ? You do not get better as expected. Patient Instructions: Antibiotic Form, Methamphetamine Use Disorder (DC), Anemia (DC), Alcohol Dependence (DC) Patient Language: Welsh Stand Alone Forms: General Discharge Information Follow-up/Referrals: Vic,Stu Bowles MD [Primary Care Provider, Unknown] - Keep Reg. Scheduled Appt. Discharge Medications: New thiamine HCl (vitamin B1) [Vitamin B-1] 100 mg Tablet 100 mg PO QAM Qty: 1 0RF pantoprazole 40 mg Tablet,Delayed Release (Dr/Ec) 40 mg PO QAM Qty: 30 0RF folic acid 1 mg Tablet 1 mg PO DAILY Qty: 30 0RF multivitamin with folic acid [Thera] 400 mcg Tablet 1 tablet PO QAM Qty: 30 0RF sulfamethoxazole-trimethoprim [Bactrim DS] 800-160 mg tablet 1 tablet PO Q12H Qty: 8 0RF Continued furosemide 40 mg tablet 40 mg PO BID (DME) FreeStyle [place] 3 Sensor Device MISCELLANEOUS ezetimibe 10 mg tablet 10 mg PO DAILY gabapentin 600 mg tablet 600 mg PO TID glimepiride 2 mg tablet 2 mg PO DAILY metformin 1,000 mg tablet 1,000 mg PO BID potassium chloride 20 mEq tablet extended release 20 meq PO DAILY primidone 50 mg tablet 50 mg PO BID tadalafil 20 mg tablet 20 mg PO PRN insulin degludec [Tresiba FlexTouch U-100] 100 unit/mL (3 mL) insulin pen See Rx Instructions SUBCUT .COMPLEX Rx Instructions: subcutaneously; insulin lispro 100 unit/mL insulin pen See Rx Instructions SUBCUT .COMPLEX Rx Instructions: subcutaneously; Date of admission: 06/03/25 16:54 Primary Care Provider: Vic,Stu Bowles Admitting Provider: Ac Singh Oca Attending physician on admission: Ac Singh Oca Condition: Stable Quality VTE Prophylaxis VTE prophylaxis: mechanical ordered -Patient's previous records reviewed on admission -ER notes reviewed in detail on admission -discussed all findings and current treatment plan with patient/Family/POA -Consultations reviewed for recommendations -Patient's disposition for safe discharge discussed with onsite case manager -radiology imaging, EKG and test results I have personally reviewed and interpreted unless otherwise specified Dictation performed by [employer] direct speech recognition software, therefore homemaking rehabilitation consultant variants and typographical errors may occur. Hospitalist MIPS Heart Failure (Exclusion) Patient has history of Heart Transplant or Left Ventricular Assistive Device?: No IF YES, STOP HERE Heart Failure (Qualifier) Patient has current or prior documentation of LVEF less than or equal to 40%, or mod/servere depressed LVSF?: No IF NO, STOP HERE
[2025-06-05] MEDS: PRIMIDONE 50 MG TABLET PO (12:08)
[2025-06-05] MEDS: EZETIMIBE 10 MG TABLET PO (12:08)
[2025-06-05] MEDS: THIAMINE HCL 100 MG TABLET PO (12:08)
[2025-06-05] MEDS: POTASSIUM CHLORIDE 20 MEQ ER TABLET PO (12:08)
[2025-06-05] MEDS: FOLIC ACID 1 MG TABLET PO (12:08)
[2025-06-05] MEDS: MULTIVITAMINS THERAPEUTIC TAB (*BKC) 1 TABLET PO (12:08)
[2025-06-05] MEDS: FUROSEMIDE 40 MG TABLET PO (12:08)
[2025-06-05] MEDS: GABAPENTIN 300 MG CAPSULE 600 MG PO (13:00)
--- NOTE | 2025-06-06 13:20 | WPDANESPN ---
Anes - Prog Note Post-Op Date/Time: 06/06/25 13:20 Cardiovascular status: normal Respiratory status: normal Airway patency: baseline Mental status: baseline Post-Op hydration status: normal Vital Signs: Last Vital Signs Temp 36.5 C 06/05/25 14:00 Pulse 75 06/05/25 14:00 Resp 16 06/05/25 14:00 BP 112/72 06/05/25 14:00 Pulse Ox 100 06/05/25 14:00 O2 Del Method Room Air 06/05/25 10:52 Pain Score (VAS): 0 Laboratory Tests 06/05/25 05:48 06/05/25 05:48 Post-procedural complaints: none Patient Feedback: Patient satisfied with anesthetic care.
== END 2025-06-05 15:15 | disposition home or self-care (01) | DRG 378 ==
LOC: ANHED 14:00 → ANH3MEDSUR 14:37 → ANH3MED 15:03
PROVIDERS: Internal Medicine Gastroenterology; Nurse Practitioner Adult Health; Admitting Provider Student in an Organized Health Care Education/Training Program; Emergency Provider Physician Assistant; PCP Internal Medicine; Visit Provider Nurse Practitioner Family
PROC: 0DJ08ZZ Inspection of Upper Intestinal Tract, Via Natural or Artificial Opening Endoscopic (ICD-10-PCS; principal; 2025-06-03 07:30)
PROC: 0DJD8ZZ Inspection of Lower Intestinal Tract, Via Natural or Artificial Opening Endoscopic (ICD-10-PCS; CPT 45378; principal; 2025-06-05 15:00)
DX: K92.1 Melena (principal); D62 Acute posthemorrhagic anemia; L03.116 Cellulitis of left lower limb; F10.10 Alcohol abuse, uncomplicated; E66.9 Obesity, unspecified; E11.59 Type 2 diabetes mellitus with other circulatory complications; K29.70 Gastritis, unspecified, without bleeding; F15.10 Other stimulant abuse, uncomplicated; Z68.30 Body mass index [BMI] 30.0-30.9, adult; Z79.84 Long term (current) use of oral hypoglycemic drugs; Z79.4 Long term (current) use of insulin; Z79.82 Long term (current) use of aspirin
CPT/HCPCS: 36415; 36430; 71275; 74177; 80048; 80053; 80307; 81001; 82077; 82607; 82728; 82746; 82948; 83540; 83550; 83605; 83735; 83880; 84443; 84466; 84484; 85014; 85018; 85025; 85027; 85046; 85610; 85730; 86850; 86900; 86901; 86923; 88305; 88342; 93005; 93970; 96361; 96365; 96367; 99285; A9270; G0378; J0690; J2470; J2704; J3475; J7050; J7120; P9016; Q9967